=== PATIENT | female | born 1995 | race Caucasian/White ===

== ENCOUNTER 2021-11-18 07:00 | Inpatient (IN) | payer BC, SELFPAY ==
[2021-11-18] VITALS (76 sets, daily range): BP systolic 88–123; BP diastolic 46–73; PULSE 60–102; RESP 16; TEMP 36.2–37.2; O2SAT 86–100; BMI 34.0
[2021-11-18] MEDS: Lactated Ringers 1,000 ML 50 ML IV (07:45)
[2021-11-18 08:04] LABS: Absolute Lymphocyte Count 1.87 X10^3/uL (0.83-4.51); Absolute Neutrophil Count 6.1 X10^3/uL (2.0-7.7); Basophil# 0.02 X10^3/uL; Basophil% 0.2 % (0-1); Eosinophil# 0.19 X10^3/uL; Eosinophils% 2.1 % (0-5); Hemoglobin 10.8 g/dL (12.0-15.0); Lymphocyte # 1.87 X10^3/ul (0.83-4.51); Lymphocyte % 21.1 % (19-41); Mean Corp Hgb Conc 32.7 g/dL (32-36); Mean Corpuscular Hgb 28.2 pg (27.0-32.0); Mean Corpuscular Volume 86.2 fL (81-99); Mean Platelet Vol. 11.2 fl (6.2-12.0); Monocyte# 0.58 X10^3/uL; Monocyte% 6.6 % (0-10); NRBC Flagged by Analyzer 0 % (0-5); Neutrophil # 6.09 X10^3/uL (2.7-7.7); Neutrophil % 68.9 % (47-70); Platelet Count 173 K/mm3 (150-450); RBC Distribution Width CV 13.8 % (11.6-14.6); RBC Distribution Width SD 42.6 fl (35.1-43.9); Red Blood Count 3.83 M/mm3 (4.2-5.4); White Blood Count 8.9 K/mm3 (4.4-11.0)
[2021-11-18] MEDS: Oxytocin 30 units/NS 500 ml 30 UNITS/500 ML IV.SOLN IV (08:07)
--- NOTE | 2021-11-18 08:22 | PCM.HP.OB ---
HPI - General General Date of Admission: 11/18/21 Date of Service: 11/18/21 HPI Narrative REBEL DAWKINS, is a 26 F who presents at 40w1d for induction of labor for GDMA1 with good glycemic control. PFSH PFSH Home Medications Aspir-81 81 mg PO.IVFORM DAILY pre-e prevention 11/18/21 [History Last Taken Unknown] iron 325 mg PO.IVFORM DAILY anemia 11/18/21 [History Last Taken Unknown] [id number]-[id number]-Tm-FA 1 mg tablet 1 tab PO DAILY 11/18/21 [History Last Taken 11/15/21 22:00 1 tablet] Allergy/AdvReac Type Severity Reaction Status Date / Time cephalexin [From Keflex] Allergy Hives Verified 11/18/21 08:10 penicillin G Allergy Hives Verified 11/18/21 08:10 Social History Smoking Status: Former smoker History Elective abortions Hx Para 1 Spontaneous abortions Hx # Term Pregnancies Ectopic pregnancies Hx # Pregnancies Multiple births # of living children NST FHR Rate Baby A Baseline: 125 Variability:: Absent Accelerations:: 15 x 15 NST Reactive:: Yes FHR Category:: Category I Uterine Activity:: None ROS Constitutional Constitutional: Reports systems reviewed and no addt'l complaints, except as documented; Denies headache(s) Eyes Eyes: Denies acute decrease in peripheral vision, blurry vision or change in vision ENT HEENT: Reports systems reviewed and no addt'l complaints, except as documented Cardiovascular Cardiovascular: Denies chest pain or dizziness Respiratory/Chest Respiratory/Chest: Denies cough, dyspnea, dyspnea on exertion, shortness of breath at rest or shortness of breath with exertion Gastrointestinal Gastrointestinal: Denies abdominal pain, diarrhea, nausea or vomiting Genitourinary Genitourinary: Denies abdominal discomfort or movement Musculoskeletal Musculoskeletal: Denies limited range of motion Integumentary Integumentary: Reports systems reviewed and no addt'l complaints, except as documented Neurologic Neurologic: Reports systems reviewed and no addt'l complaints, except as documented Psychiatric Psychiatric: Reports systems reviewed and no addt'l complaints, except as documented Endocrine Endocrinology: Reports systems reviewed and no addt'l complaints, except as documented Hematologic/Lymphatic Hematologic/Lymphatic: Reports systems reviewed and no addt'l complaints, except as documented Allergic/Immunologic Allergic/Immunologic: Reports systems reviewed and no addt'l complaints, except as documented Vital Signs Vital Signs Vital Signs: 11/18/21 08:09 11/18/21 08:09 11/18/21 08:09 Temperature Pulse Rate 79 Blood Pressure 122/59 H BP Systolic 122 BP Diastolic 59 Pulse Ox 97 11/18/21 08:09 11/18/21 08:09 Temperature 97.7 F L Pulse Rate 78 Blood Pressure BP Systolic BP Diastolic Pulse Ox Weight Weight: 192 lb 0.362 oz Body Mass Index (BMI) 34.0 Physical Exam Const alert and oriented x3 General Appearance: cooperative Orientation / Consciousness: awake, oriented to person, oriented to place and oriented to time Exam Limitations: no limitations HEENT normocephalic Head and Scalp: normal to inspection, normocephalic and atraumatic Face and Sinus: normal facial exam Eyes General Eye: normal appearance of both eyes Neck full ROM Chest Chest: symmetrical chest wall rise Resp normal respiratory effort and normal air movement Auscultation: clear to auscultation bilaterally Cardio regular rate, regular rhythm, S1 normal heart sound, S2 normal heart sound, no murmurs, no rub, no gallops and no clicks GI normal to inspection, nondistended, normoactive bowel sounds and non-tender appearance of the vagina normal Bladder / Kidney Exam: no CVA tenderness Back/Spine normal ROM Extremity normal to inspection and full ROM Skin no rashes or lesions noted Neuro oriented x3, CN's II-XII intact bilaterally and moves all extremities Sensorium / Orientation: awake, alert and oriented to person Motor Exam: clonus absent Deep Tendon Reflexes: Rt Patellar (L4): 2+ and Lt Patellar (L4): 2+ Labs Labs Labs: Blood Type Pending Antibody Screen Pending Hct 33.0 % (37-47) L Hgb 10.8 g/dL (12.0-15.0) L Growth US at 36 weeks 83rd percentile GBS negative HIV negative RPR negative Rubella Immune HBsAG negative HepCnegative A positive Assessment & Plan (1) Encounter for induction of labor: (2) GDM, class A1: (3) Anemia affecting : (4) Obesity affecting : (5) History of depression: (6) Family history of Marfan syndrome: PLAN: Plan 1) Admit to labor and delivery 2) Routine labs 3) GBS negative 4) Aldrich with pitocin for induction of labor per policy 5) Desires PPTL, will complete during stay if unit accuity allows 6) Epidural for pain management 7) BS check upon admission and diabetic protocol 8) collaborative physician and notified of patient status
[2021-11-18] MEDS: 0.9% Normal Saline Single 100 ML IV.SOLN. INTRA-UTER (08:34)
[2021-11-18 08:40] LABS: Bedside Glucose 145 mg/dL (74-106)
[2021-11-18] MEDS: Mag Hydrox/Al Hydrox/Simeth 30 ML UDC PO ×3 (08:54→19:46)
[2021-11-18 09:41] LABS: Bedside Glucose 101 mg/dL (74-106)
[2021-11-18 10:56] LABS: Bedside Glucose 77 mg/dL (74-106)
--- NOTE | 2021-11-18 11:53 | PN.OBGYN_ITS ---
Subjective Subjective Resting in bed. Partner at bedside. Breathing through contractions. Objective Data Objective Data Vital Signs: Vital Signs Temp Pulse BP Pulse Ox 97.5 F L 64 106/55 L 98 11/18/21 11:11 11/18/21 11:44 11/18/21 11:11 11/18/21 11:44 Weight: 192 lb 0.362 oz Body Mass Index (BMI) 34.0 Intake & Output: Intake and Output for Last 24 Hours 11/16/21 11/17/21 11/18/21 23:59 23:59 23:59 Intake Total 912.43 / 912.43 Output Total 900 / 900 Balance 12.43 / 12.43 Lab / Micro Data Result Diagrams: 11/18/21 07:45 Labs: Laboratory Results - last 24 hr 11/18/21 07:45: WBC 8.9, RBC 3.83 L, Hgb 10.8 L, Hct 33.0 L, MCV 86.2, MCH 28.2, MCHC 32.7, RDW Std Deviation 42.6, RDW Coeff of Genie 13.8, Plt Count 173, MPV 1 1.2, Immature Gran % (Auto) 1.100 H, Neut % (Auto) 68.9, Lymph % (Auto) 21.1, [place] % (Auto) 6.6, Eos % (Auto) 2.1, Baso % (Auto) 0.2, Absolute Neuts (auto) 6.1, Absolute Lymphs (auto) 1.87, Nucleated RBC % 0 11/18/21 07:45: Blood Type A POSITIVE, Antibody Screen NEGATIVE 11/18/21 08:18: POC Glucose 145 H 11/18/21 09:19: POC Glucose 101 11/18/21 10:23: POC Glucose 77 Micro: Microbiology 11/18/21 07:45 Nasal Secretion SARS-CoV-2 Antigen (Rapid) - Final Physical Exam Narrative 5cm/70%/-1 AROM for clear fluid NST FHR Rate Baby A Baseline: 125 Variability:: Moderate Accelerations:: None Decelerations:: Prolonged FHR Category:: Category II Uterine Activity:: every 2-5 minutes. Assessment & Plan (1) Encounter for induction of labor: (2) GDM, class A1: (3) Anemia affecting : (4) Obesity affecting : PLAN: Plan 1) AROM for clear fluid 2) IUPC and FSE placed 3) Prolonged decel after rupture. Pitocin off and positional changes. Category 2 4) Pitocin off for 3 minutes then restart at 4mus 5) Epidural for pain management 6) notified of patient status
[2021-11-18] MEDS: LACTATED RINGERS 500 ML 999 ML IV (11:55)
[2021-11-18] MEDS: fentaNYL-bupivacaine (epidural) 100 ML BAG EPIDURAL ×2 (13:10→17:45)
[2021-11-18 14:40] LABS: Bedside Glucose 74 mg/dL (74-106)
[2021-11-18] MEDS: Lactated Ringers 1,000 ML 200 ML IV ×2 (15:12→19:46)
[2021-11-18 18:16] LABS: Bedside Glucose 63 mg/dL (74-106)
[2021-11-18 19:21] LABS: Bedside Glucose 74 mg/dL (74-106)
[2021-11-18 20:10] LABS: Bedside Glucose 75 mg/dL (74-106)
[2021-11-18] MEDS: Oxytocin 30 units/NS 500 ml 30 UNITS/500 ML IV.SOLN 334 UNITS IV (21:22)
[2021-11-18 21:26] LABS: Bedside Glucose 89 mg/dL (74-106)
--- NOTE | 2021-11-18 21:36 | EX.PCM.OBRPT ---
Assessment & Plan (1) GDM, class A1: (2) Vaginal delivery: (3) First degree perineal laceration: Maternal Data Information ARLEY Calculator Estimated Delivery Date Method Current WG Current Estimate 11/17/21 Manual 40w 1d Vaginal Delivery Maternal Presentation Maternal Presentation: Medically Indicated Induction Maternal Presentation: Induction of labor for GDMA1, obesity Type of Induction: Pitocin and Aldrich Bulb Operative Information Date of Procedure: 11/18/21 Pre-Operative Diagnosis: Induction of labor Post-Operative Diagnosis: with first degree perineal laceration Surgery / Procedure Performed: Spontaneous Vaginal Delivery Type of Anesthesia: Epidural Estimated Blood Loss: 600 ml Time of Delivery: 21:21 Findings Description of Procedure: Progressed to complete dilation. Good pushing efforts, epidural effective. of viable male infant over first degree perineal laceration. APGARS 8,9. Infant head delivered with body immediately forthcoming. Placed on maternal abdomen, strong cry. Mouth and nares suctioned for secretions. Pitocin started for active 3rd stage management. Clord clamped and cut by FOB after pulsations ceased. Placenta delivered with expression intact, 3 vessel cord via dimple. Perineum inspected and revealed first degree perineal laceration repaired under epidural analgesia with 3.0 vircyl rapide. well approximated and hemostasis achieved. EBL 600ml, fundus firm. Vaginal sweep completed, sponge and instrument count correct. Mother and baby stable, planning to breastfeed, family bonding well. notified of delivery. Presentation: GORDY Amniotic Membrane Rupture Type: Artificial Amniotic Fluid Description: Clear Placental Delivery Description: Expressed Placenta Disposition: [facility] Cord Vessel Description: 3 Vessels Cord Entanglement: None A Gender: Male (1 minute): 8 (5 minute): 9 Delayed Cord Clamping: Yes Post Vaginal Delivery Medications Given After Delivery: IV Pitocin Episiotomy Description: None Laceration: Perineal Extension/lac and 1st degree Complication Complications: None
[2021-11-18 22:35] LABS: Bedside Glucose 98 mg/dL (74-106)
[2021-11-19 00:04] VITALS: PULSE 89; O2SAT 99
[2021-11-19 04:11] VITALS: BP 108/56; PULSE 66; RESP 18; TEMP 36.7; O2SAT 97
[2021-11-19] MEDS: Ibuprofen 600 MG Tablet PO ×3 (04:21→18:00)
[2021-11-19 05:36] LABS: Hemoglobin 9.7 g/dL (12.0-15.0); Mean Corp Hgb Conc 32.3 g/dL (32-36); Mean Corpuscular Volume 86.5 fL (81-99); Mean Platelet Vol. 10.8 fl (6.2-12.0); Platelet Count 153 K/mm3 (150-450); RBC Distribution Width CV 13.6 % (11.6-14.6); Red Blood Count 3.47 M/mm3 (4.2-5.4); White Blood Count 12.3 K/mm3 (4.4-11.0)
[2021-11-19 06:25] LABS: Bedside Glucose 84 mg/dL (74-106)
[2021-11-19 07:33] VITALS: BP 109/48; PULSE 90; RESP 18; TEMP 36.1; O2SAT 97
--- NOTE | 2021-11-19 08:33 | NURSING ---
Pt sitting in reclined chair during shift assessment and fundal check. Fundal at 1 above U, midline, and firm. Noted that previous assessments were at U. Will recheck when pt is lying flat in bed. DAVIDA morales.
[2021-11-19] MEDS: Senna/Docusate Sodium 1 Tablet PO (10:28)
[2021-11-19] MEDS: Prenatal Vits Tablet 1 TABLET PO (10:28)
[2021-11-19] MEDS: Citalopram 10 MG Tablet PO (10:28)
[2021-11-19 12:12] VITALS: BP 115/43; PULSE 83; RESP 16; TEMP 36.6
--- NOTE | 2021-11-19 12:20 | PCM.PN.OB ---
Subjective Subjective Pain controlled Objective Data Objective Data Vital Signs: Vital Signs Temp Pulse Resp BP Pulse Ox O2 Del Method 97.8 F 83 16 115/43 L 97 Room Air 11/19/21 12:12 11/19/21 12:12 11/19/21 12:12 11/19/21 12:12 11/19/21 07:33 11/19/21 12:12 Oxygen Delivery Method Room Air Weight: 192 lb 0.362 oz Body Mass Index (BMI) 34.0 Intake & Output: Intake and Output for Last 24 Hours 11/17/21 11/18/21 11/19/21 23:59 23:59 23:59 Intake Total 3721.76 / 4221.76 1500 / 1500 Output Total 1999 / 1999 1750 / 1750 Balance 1721.76 / 2221.76 -250 / -250 Lab / Micro Data Result Diagrams: 11/19/21 05:30 Labs: Laboratory Results - last 24 hr 11/18/21 14:17: POC Glucose 74 11/18/21 17:55: POC Glucose 63 L 11/18/21 19:00: POC Glucose 74 11/18/21 19:52: POC Glucose 75 11/18/21 21:06: POC Glucose 89 11/18/21 22:16: POC Glucose 98 11/19/21 05:30: WBC 12.3 H, RBC 3.47 L, Hgb 9.7 L, Hct 30.0 L, MCV 86.5, MCH 28.0, MCHC 32.3, RDW Std Deviation 42.0, RDW Coeff of Genie 13.6, Plt Count 153, MPV 10.8 11/19/21 05:59: POC Glucose 84 Micro: Microbiology 11/18/21 07:45 Nasal Secretion SARS-CoV-2 Antigen (Rapid) - Final Physical Exam Const alert, oriented x3 and no apparent distress HEENT normocephalic GI soft to palpation, non-tender and non-distended GI Narrative: fundus firm, mid & below umbilicus Extremity normal to inspection and no calf tenderness Assessment & Plan (1) Vaginal delivery: COMMENT: PPD#1 PLAN: Possible d/c home tonight as requested by patient CBC reviewed (2) GDM, class A1: PLAN: FBS normal this am
--- NOTE | 2021-11-19 12:22 | DCINST_ITS ---
Discharge Instructions Diet Discharge Diet: No restrictions Activity Discharge Activity: May Shower May resume sexual activity in: 6 weeks Weight Bearing Status: Weight bearing as tolerated Dressing / Incision Call your doctor if you observe: Fever of 101 or Higher, Coldness, Increased Pain, Change in Color, Inability to urinate, Inability to have a bowel movement, Using more than 1 pad per hour, Shortness of breath, Dizziness, Fainting spells, Chest pain, Increased palpitations (irregular heartbeat), Calf discomfort and Uncontrolled pain Suture Line Care: Avoid Pulling/Pushing and Avoid Pinching/Bending Follow Up Care Please Follow Up With: Sunitha Atkins CNM When: Follow up in 2 and 6 weeks for visits. Test Results: Test results from this visit will be discussed in further detail at your follow- up appointment, if applicable. Discharge Plan Admission Admit Date/Time: 11/18/21 07:00 Primary Reason for Your Visit: Vaginal delivery Attending Provider: Sunitha Atkins Primary Care Provider: Care Physician,Afsaneh Primary Discharge Orders/Prescriptions Prescriptions: New acetaminophen 500 mg Tablet 1,000 mg PO Q6H PRN PRN (Reason: Pain 1-10 Or Fever) Qty: 0 0RF ibuprofen 600 mg Tablet 600 mg PO Q6H PRN PRN (Reason: Pain Score 1-3) Qty: 0 0RF Continued ttarenyd-rwe-Me-FA 1 mg Tablet 1 tab PO DAILY iron 325 mg PO.IVFORM DAILY Celexa 10 mg PO.IVFORM DAILY Discontinued Aspir-81 81 mg PO.IVFORM DAILY Referrals / Follow Up: Care Physician,No Primary [Primary Care Provider] - Disposition Disposition (needs filled in before D/C Order can be placed): Home, Self Care
[2021-11-19 16:00] VITALS: BP 136/64; PULSE 83; RESP 16; TEMP 36.3
[2021-11-19 19:57] VITALS: BP 112/51; PULSE 73; RESP 17; TEMP 36.3; O2SAT 97
== END 2021-11-19 22:40 | disposition home or self-care (01) | DRG 807 ==
PROVIDERS: Obstetrics & Gynecology; Admitting Provider Advanced Practice Midwife; Visit Provider Advanced Practice Midwife
DX: O76 Abnormality in fetal heart rate and rhythm complicating labor and delivery (principal); Z37.0 Single live birth; O24.420 Gestational diabetes mellitus in childbirth, diet controlled; O99.02 Anemia complicating childbirth; O99.214 Obesity complicating childbirth; O70.0 First degree perineal laceration during delivery; Z79.82 Long term (current) use of aspirin; Z3A.40 40 weeks gestation of pregnancy; Z86.59 Personal history of other mental and behavioral disorders; Z87.891 Personal history of nicotine dependence; Z82.79 Family history of other congenital malformations, deformations and chromosomal abnormalities
CPT/HCPCS: 59025; 59050; 82962; 85025; 85027; 86850; 86900; 86901; 87426; 99218; J7120; G0378

== ENCOUNTER 2021-11-22 01:00 | Emergency (ER) | payer BC, SELFPAY ==
[2021-11-22 01:01] VITALS: BP 144/82; PULSE 75; RESP 16; TEMP 35.9; O2SAT 97; BMI 32.2
[2021-11-22 01:23] LABS: Mucous, Urine 0 SEEN /hpf (<or=2+)
[2021-11-22 01:24] LABS: Color, Urine Yellow (Yellow); Glucose, Dipstick Normal (Normal); Ketone-Dipstick Negative (Negative); Leukocyte Esterase-Dipstick 100 /ul (Negative); Nitrite-Dipstick Negative (Negative); Occult Blood-Urine 250 /ul (Negative); Protein-Dipstick Negative (Negative); Urine Bilirubin Dipstick Negative (Negative); Urine Clarity Clear (Clear); Urine Urobilinogen Normal (Normal)
[2021-11-22 01:25] LABS: Absolute Lymphocyte Count 2.32 X10^3/uL (0.83-4.51); Absolute Neutrophil Count 4.7 X10^3/uL (2.0-7.7); Basophil# 0.02 X10^3/uL; Basophil% 0.2 % (0-1); Hematocrit 31.8 % (37-47); Hemoglobin 10.4 g/dL (12.0-15.0); Lymphocyte # 2.32 X10^3/ul (0.83-4.51); Lymphocyte % 28.7 % (19-41); Mean Corp Hgb Conc 32.7 g/dL (32-36); Mean Corpuscular Volume 85.5 fL (81-99); Mean Platelet Vol. 10.6 fl (6.2-12.0); Monocyte# 0.61 X10^3/uL; Monocyte% 7.6 % (0-10); NRBC Flagged by Analyzer 0 % (0-5); Neutrophil # 4.66 X10^3/uL (2.7-7.7); Neutrophil % 57.8 % (47-70); POSITIVE MORPHOLOGY YES; Platelet Count 207 K/mm3 (150-450); RBC Distribution Width CV 13.6 % (11.6-14.6); RBC Distribution Width SD 42.5 fl (35.1-43.9); Red Blood Count 3.72 M/mm3 (4.2-5.4); White Blood Count 8.1 K/mm3 (4.4-11.0)
[2021-11-22 01:32] LABS: Bacteria RARE /hpf (None Seen); Red Blood Cells-Urine 5-10 SEEN /hpf (0-5); Squamous Epithelial Cells - UA 0-5 SEEN /hpf (5-10); White Blood Cells 0-5 SEEN /hpf (0-5)
[2021-11-22 01:33] LABS: Differential Indicated SCAN CRITERIA MET
[2021-11-22 01:38] LABS: Anion Gap 7 (5-15); BUN 8 mg/dL (7-18); BUN/Creat Ratio 11.6 RATIO (10-20); Calcium,Total 8.8 mg/dL (8.5-10.1); Chloride 109 mmol/L (98-107); Creatinine, Serum 0.69 mg/dL (0.55-1.02); EST Glomerular Filtration Rate 109 mL/min (>60); Est Glom Filt Rate - Afr Amer 132 mL/min (>60); Estimated Creatinine Clearance 102.21 ml/min; Glucose 109 mg/dL (74-106); Lipase 103 U/L (73-393); Potassium 3.7 mmol/L (3.5-5.1); Sodium Level 140 mmol/L (136-145)
--- NOTE | 2021-11-22 01:41 | CT_ITS ---
STUDY: CT ABDOMEN AND PELVIS WITHOUT CONTRAST REASON FOR EXAM: Female, 26 years old. Flank pain RADIATION DOSAGE (If Supplied By Facility): CTDIvol = ( 9.09 ) mGy, DLP = ( 458.78 ) mGycm TECHNIQUE: Transaxial images were obtained from the dome of the diaphragm to the symphysis pubis without oral contrast, and without intravenous contrast. Sagittal and coronal images were reconstructed. Individualized dose optimization techniques were used for this CT. COMPARISON: None. FINDINGS: The visualized lung bases are unremarkable. The visualized portions of the heart are within normal limits. Normal liver. Normal gallbladder and extrahepatic biliary system. Normal spleen. Normal pancreas. Normal bilateral adrenal glands. Normal right kidney. Normal left kidney. Normal visualized stomach. Normal small intestine. Normal colon. The appendix is visualized and appears normal. Normal abdominal aorta. Normal inferior vena cava. Normal retroperitoneum. Normal urinary bladder. Normal reproductive structures. Normal abdominal wall. Normal osseous structures. CT/Abdomen/Pelvis without Cont IMPRESSION: No acute intra-abdominal abnormality. Electronically Signed: Vikash Montano MD at 2:23 EDT ,
[2021-11-22 01:43] LABS: Atypical Lymphocyte RARE %; Differential Comment SCANNED
[2021-11-22] MEDS: 0.9% Normal Saline 1,000 ML 999 ML IV (01:48)
[2021-11-22 02:05] LABS: AST(SGOT) 14 U/L (15-37); Alanine Aminotransfer ALT/SGPT 17 U/L (13-56); Albumin, Serum 2.3 g/dL (3.2-5.0); Alkaline Phosphatase 108 U/L (45-117); Bilirubin, Direct < 0.05 mg/dL (0.00-0.30); Protein, Total 6.3 g/dL (6.4-8.2)
--- NOTE | 2021-11-22 02:37 | EDS_ITS ---
HPI History of Present Illness Chief Complaint: Abd Pain Narrative Narrative: Patient is a 26-year-old female with past medical history of depression. She is a G2, P2 who gave by vaginal delivery 4 days ago. Patient states that the was relatively uneventful and she had a grade 1 tear that did not require sutures. She states she stayed in the hospital overnight until Thursday and went home. She states she has been doing well but this evening around midnight developed left-sided abdominal pain. She states there is been no trauma associated with the pain. She denies any fevers or chills. She denies any nausea vomiting diarrhea or dysuria. She states she is having some vaginal bleeding and discharge but this is common at this point after her . She states that the pain waxes and wanes but as it had a sudden onset she was concerned and therefore comes in for evaluation. PFSH PFS Medical History (Updated 11/22/21 @ 02:[address] Kit Coles, DO) Anemia Anxiety Depression Gestational diabetes depression Home Medications Celexa 10 mg PO.IVFORM DAILY depression/anxiety 11/18/21 [History Last Taken Unknown] ecrlfpqg-[id number]-Mw-FA 1 mg tablet 1 tab PO DAILY 11/18/21 [History Last Taken 11/15/21 22:00 1 tablet] acetaminophen 500 mg tablet 1,000 mg PO Q6H PRN PRN Pain 1-10 Or Fever #0 tabs 11/19/21 [Rx Last Taken Unknown] Allergy/AdvReac Type Severity Reaction Status Date / Time cephalexin [From Keflex] Allergy Hives Verified 11/22/21 01:04 penicillin G Allergy Hives Verified 11/22/21 01:04 Family History (Updated 11/18/21 @ 09:31 by Aniya Valero) Mother Hypertension Father Hypertension Son Marfan syndrome Surgical History [place] teeth extracted Social History Smoking Status: Former smoker ROS ROS ED Constitutional Constitutional ED: Denies chills or fever(s) ENT ENT ED: Denies sore throat Cardiovascular Cardiovascular: Denies chest pain Respiratory/Chest Respiratory/Chest: Denies cough or dyspnea Gastrointestinal Gastrointestinal: Reports abdominal pain; Denies diarrhea, nausea or vomiting Genitourinary Genitourinary ED: Denies dysuria Musculoskeletal Musculoskeletal: Denies myalgias Integumentary Denies rash Neurologic Neurologic: Denies headache(s) Hematologic/Lymphatic Hematologic/Lymphatic: Denies easy bleeding or easy bruising EXAM Physical Exam Const Vital Signs: 11/22/21 01:01 11/22/21 02:46 Temperature 96.6 F L Temperature Source Temporal Pulse Rate 75 76 Respiratory Rate 16 16 Blood Pressure 144/82 H Blood Pressure Mean 102 Pulse Ox 97 98 Oxygen Delivery Method Room Air Positive well nourished and well developed General Appearance ED: well developed Eyes PERRL and EOMs intact bilaterally Neck supple Resp normal respiratory effort and clear to auscultation bilaterally Cardio regular rate and regular rhythm Rate: other Other Details: Radial pulses are plus 2 out of 4 bilaterally are equal and symmetric GI non-distended GI Narrative: Abdomen is soft and nondistended with normoactive bowel sounds. There is pain with palpation in the left lower quadrant without voluntary guarding or rigidity. The patient's uterus is still distended consistent with her post state. Auscultation: normoactive bowel sounds Palpation: soft Back/Spine Back/Spine Narrative: Mild left CVA pain noted Extremity normal to inspection Extremity Narrative: No asymmetric edema no pitting edema negative Homans' sign bilaterally Neuro oriented x3 and CN's II-XII intact bilaterally Sensorium / Orientation: alert Psych mental status grossly normal Skin no rashes or lesions noted Skin Narrative: No overlying soft tissue skin changes to suggest trauma or infection MDM MDM MDM Narrative Medical decision making narrative: Patient presented to the ER afebrile. She had pain in the left lower quadrant as well as left flank that she states was waxing and waning and came on suddenly. Based on this history I had concern for possible kidney stone so basic labs and a CT scan were ordered. Labs showed no clinically significant findings and CT scan revealed no obvious cause of the patient's pain. The patient had a vaginal delivery and reportedly the placenta was without difficulty. This fits the fact that she is afebrile with no leukocytosis and the pain is been intermittent as well as the fact the CT scan shows no retained products of conception. The urine does show leukocyte esterase but there are no white blood cells and only rare bacteria and the patient does not have urinary symptoms so I do not feel this is the cause of her pain. On reevaluation she is resting comfortably and her vitals remained stable. At this time with a negative work-up I do not feel there is need for admission or emergent transfer. Patient can follow-up with her [facility] on outpatient basis to discuss need for ultrasound if her pain persist but at this time with negative blood work and stable vitals as well as a normal CT scan I feel she is safe for discharge and outpatient follow-up Lab Data Attestation: I reviewed the patient's lab results. Labs: Laboratory Results - last 24 hr 11/22/21 11/22/21 11/22/21 01:10 01:20 01:20 WBC 8.1 RBC 3.72 L Hgb 10.4 L Hct 31.8 L MCV 85.5 MCH 28.0 MCHC 32.7 RDW Std Deviation 42.5 RDW Coeff of Genie 13.6 Plt Count 207 MPV 10.6 Immature Gran % (Auto) 0.700 Neut % (Auto) 57.8 Lymph % (Auto) 28.7 [place] % (Auto) 7.6 Eos % (Auto) 5.0 Baso % (Auto) 0.2 Absolute Neuts (auto) 4.7 Absolute Lymphs (auto) 2.32 Nucleated RBC % 0 Differential Comment SCANNED Atypical Lymphocytes RARE Sodium 140 Potassium 3.7 Chloride 109 H Carbon Dioxide 24.0 Anion Gap 7 BUN 8 Creatinine 0.69 Estim Creat Clear Calc 102.21 Est GFR (MDRD) Af Amer 132 Est GFR (MDRD) Non-Af 109 BUN/Creatinine Ratio 11.6 Glucose 109 H Calcium 8.8 Total Bilirubin Direct Bilirubin AST ALT Alkaline Phosphatase Total Protein Albumin Globulin Lipase 103 Urine Color Yellow Urine Clarity Clear Urine pH 7.0 Ur Specific [place] 1.010 Urine Protein Negative Urine Glucose (UA) Normal Urine Ketones Negative Urine Occult Blood 250 H Urine Nitrite Negative Urine Bilirubin Negative Urine Urobilinogen Normal Ur Leukocyte Esterase 100 H Urine RBC 5-10 SEEN Urine WBC 0-5 SEEN Ur Squamous Epith Cells 0-5 SEEN Urine Bacteria RARE Urine Mucus 0 SEEN 11/22/21 01:20 WBC RBC Hgb Hct MCV MCH MCHC RDW Std Deviation RDW Coeff of Genie Plt Count MPV Immature Gran % (Auto) Neut % (Auto) Lymph % (Auto) [place] % (Auto) Eos % (Auto) Baso % (Auto) Absolute Neuts (auto) Absolute Lymphs (auto) Nucleated RBC % Differential Comment Atypical Lymphocytes Sodium Potassium Chloride Carbon Dioxide Anion Gap BUN Creatinine Estim Creat Clear Calc Est GFR (MDRD) Af Amer Est GFR (MDRD) Non-Af BUN/Creatinine Ratio Glucose Calcium Total Bilirubin 0.20 Direct Bilirubin < 0.05 AST 14 L ALT 17 Alkaline Phosphatase 108 Total Protein 6.3 L Albumin 2.3 L Globulin 4.0 Lipase Urine Color Urine Clarity Urine pH Ur Specific [place] Urine Protein Urine Glucose (UA) Urine Ketones Urine Occult Blood Urine Nitrite Urine Bilirubin Urine Urobilinogen Ur Leukocyte Esterase Urine RBC Urine WBC Ur Squamous Epith Cells Urine Bacteria Urine Mucus Radiography Diagnostic Testing: Clinical Impression(s) from Imaging Studies Abdomen/Pelvis CT 11/22/21 01:41 IMPRESSION: No acute intra-abdominal abnormality. Electronically Signed: Vikash Montano MD at 2:23 EDT , Discharge Plan Triage Chief Complaint: Abd Pain ED Provider: Kit Coles Dx/Rx/DC Orders Clinical Impression: Nonspecific abdominal pain Instructions: Abdominal Pain, Pain After Childbirth Prescriptions: No Action [id number]-tyf-Cm-FA 1 mg Tablet 1 tab PO DAILY Celexa 10 mg PO.IVFORM DAILY acetaminophen 500 mg Tablet 1,000 mg PO Q6H PRN PRN (Reason: Pain 1-10 Or Fever) Qty: 0 0RF Primary Care Provider: Care Physician,No Primary Referrals: Care Physician,No Primary [Primary Care Provider] - Activity Restrictions/Additional Instructions: Please follow up with your [facility] for repeat evaluation and to discuss possible ultrasound if pain persists. If pain becomes unbearable or you develop a fever over 100.4 please return to the ER for repeat evaluation Disposition Disposition: Home, Self Care Discharge Date/Time: 11/22/21 02:47
[2021-11-22 02:46] VITALS: PULSE 76; RESP 16; O2SAT 98
== END 2021-11-22 02:47 | disposition home or self-care (01) ==
PROVIDERS: Emergency Provider Emergency Medicine; Visit Provider Emergency Medicine
DX: R10.9 Unspecified abdominal pain (principal); Z87.891 Personal history of nicotine dependence
CPT/HCPCS: 74176; 80048; 80076; 81001; 83690; 85025; 99282; J7030

== ENCOUNTER 2024-01-09 12:20 | Observation (INO) | payer OTHER, SELFPAY ==
[2024-01-09] VITALS (12 sets, daily range): BP systolic 102–134; BP diastolic 61–92; PULSE 40–82; RESP 16–40; TEMP 36.2–36.6; O2SAT 97–100; BMI 26.6
--- NOTE | 2024-01-09 12:41 | CT_ITS ---
We are attempting to reach an attending provider to discuss findings. An addendum with communication details will be sent when the communication is complete. EXAM: CT ABDOMEN AND PELVIS WITH INTRAVENOUS CONTRAST CLINICAL INDICATION: RLQ abd pain TECHNIQUE: Helically acquired images were obtained of the abdomen and pelvis with intravenous contrast. This CT exam was performed using one or more of the following dose reduction techniques: automated exposure control, adjustment of the mA and/or kV according to patient size, and/or use of iterative reconstruction technique. CONTRAST: IV 100mL Isovue-300 RADIATION DOSE: CTDIvol = 12.13 mGy, DLP = 693.76 mGy-cm COMPARISON: CT abdomen and pelvis without contrast 11/22/2021. FINDINGS: LOWER THORAX: Unremarkable. Lung bases are clear. No cardiomegaly. No significant pericardial effusion. ABDOMEN: LIVER: Unremarkable. Homogeneous. No focal mass. GALLBLADDER AND BILE DUCTS: Unremarkable. No calcified gallstones. No gallbladder distention or wall edema. No intra- or extrahepatic biliary ductal dilation. PANCREAS: Unremarkable. No focal cystic or solid mass. SPLEEN: Unremarkable. Normal size without focal cystic or solid mass. ADRENALS: Unremarkable. No nodules. KIDNEYS AND URETERS: Unremarkable. Normal renal size and position. No hydronephrosis. STOMACH AND BOWEL: Mild intramural edema of the gastric antral wall. No stomach or bowel distention. No focal inflammatory change. PELVIS: APPENDIX: Mild intramural edema of the appendix worrisome for early acute appendicitis. No edema of the fat around the appendix. BLADDER: Unremarkable. REPRODUCTIVE: Unremarkable as visualized. No mass. ABDOMEN and PELVIS: INTRAPERITONEAL SPACE: Unremarkable. No ascites or other fluid collection. No free air. BONES/JOINTS: Unremarkable. No suspicious lytic or blastic abnormality. SOFT TISSUES: Unremarkable. No discrete abdominal or pelvic wall hernia. VASCULATURE: Unremarkable. Abdominal aorta is non-dilated. LYMPH NODES: Unremarkable. No enlarged lymph nodes. CT/Abdomen/Pelvis W IV Cont ONLY IMPRESSION: 1. Mild intramural edema of the appendix worrisome for early acute appendicitis. Advise clinical correlation. This is a new finding when compared to 11/22/2021. 2. Mild intramural edema of the gastric antral wall. EGD will help clarify if clinically warranted. 3. No other additional findings or changes. Electronically Signed: Pato Helm MD at 13:24 EDT ,
--- NOTE | 2024-01-09 12:43 | ED.VIS.GI ---
HPI HPI - GI History of Present Illness Chief Complaint: Abd Pain Detail of Chief Complaint: Right lower quadrant abdominal pain. Informant: patient and spouse/S.O. Abdominal Pain/Flank Pain Onset: Hours Context: Gradual Onset Timing: Continuous Quality: Cramping Location: RLQ Current Severity: Moderate Maximum Severity: Moderate Worsened by: Nothing Relieved by: Nothing Nausea/Vomiting/Emesis GI Symptom: Positive for Nausea; Negative for Vomiting Onset: Today Severity: Mild Diarrhea/Melena/Hematochezia GI Symptom: Positive for Diarrhea Onset: Today Stool Quality: Positive for Loose Severity: Mild Associated Symptoms Associated Symptoms: Negative for Dysuria, Frequency, Hematuria or Urgency Narrative Narrative: 28-year-old female denies any prior abdominal surgeries. Has a history of anemia and anxiety. States about 2 hours ago developed right lower quadrant abdominal pain with associated nausea and some loose stools. No fever. No vomiting. No dysuria. No hematuria. No prior abdominal surgeries. No trauma. Prior similar symptoms: No Recent Illness/Hospitalization: No PFSH PFSH Medical History Anemia Anxiety Depression depression Gestational diabetes Family history of Marfan syndrome History of depression Home Medications ?Medication ?Instructions ?Recorded ?Last Taken ?Type Celexa 10 mg PO.IVFORM DAILY 11/18/21 Unknown History depression/anxiety pizfsull-oit-Up-FA 1 mg 1 tab PO DAILY 11/18/21 11/15/21 22:00 History tablet 1 tablet acetaminophen 500 mg tablet 1,000 mg (2 x 500 mg) PO Q6H PRN 11/19/21 Unknown Rx PRN Pain 1-10 Or Fever #0 tabs Allergy/AdvReac Type Severity Reaction Status Date / Time cephalexin (From Keflex) Allergy Hives Verified 01/09/24 12:22 penicillin G Allergy Hives Verified 01/09/24 12:22 Family History Mother Hypertension Father Hypertension Son Marfan syndrome Surgical History [place] teeth extracted Social History Smoking Status: Former smoker ROS ROS ED ROS Narrative Nausea. Diarrhea. Abdominal pain. Constitutional Constitutional ED: Denies chills or fever(s) ENT ENT ED: Denies ear pain Cardiovascular Cardiovascular: Denies chest pain Respiratory/Chest Respiratory/Chest: Denies cough or dyspnea Gastrointestinal Gastrointestinal: Reports abdominal pain, diarrhea and nausea; Denies constipation, melena or vomiting Genitourinary Genitourinary ED: Reports LMP (females 10-50) Details: Comment: (Last menstrual period was about a week ago.); Denies dysuria or hematuria Musculoskeletal Musculoskeletal: Denies back pain or myalgias Integumentary Denies abscess or Abrasions Neurologic Neurologic: Denies headache(s) or paresthesias Psychiatric Psychiatric: Denies anxiety Endocrine Endocrinology: Denies polydipsia Hematologic/Lymphatic Hematologic/Lymphatic: Denies easy bleeding, easy bruising or lymphadenopathy Allergic/Immunologic Allergic/Immunologic ED: Denies mouth swelling, tongue swelling or urticaria EXAM Physical Exam Narrative Exam Narrative: 28-year-old female no acute distress vital signs stable afebrile. H EENT exam unremarkable. Neck nontender. Lungs clear. Heart regular rhythm rate about 80 no murmur. Chest wall ribs nontender. Abdomen soft, nondistended. Normal bowel sounds no peritoneal signs. Mild tenderness right lower quadrant. No hernia or mass. Right upper quadrant left side abdomen nontender. No distention. No signs of trauma. Back nontender. Moving all 4 extremities. No edema. Awake and alert. No focal motor deficits. Significant other at bedside. Const Vital Signs: 01/09/24 12:21 Temperature 97.2 F L Temperature Source Temporal Pulse Rate 82 Respiratory Rate 19 H Blood Pressure 134/92 H Blood Pressure Mean 106 Pulse Ox 97 Oxygen Delivery Method Room Air Positive well nourished and well developed; Negative for obese, cachectic, contractures or unkempt General Appearance ED: well developed and NAD; Negative for unkempt, cachectic, contractures or pallor Nutritional Appearance: Negative for cachectic or obese HEENT Reports moist mucous membranes normocephalic and atraumatic Eyes PERRL and EOMs intact bilaterally General Eye ED: Negative for pale conjunctiva or scleral icterus Neck no lymphadenopathy, supple and no JVD General: Negative for tenderness Carotids: Negative for other Lymph Lymphatic: Negative for other Resp normal respiratory effort Effort and Inspection: Negative for respiratory distress Auscultation: Negative for rales, rhonchi or wheezes Cardio regular rate, regular rhythm, S1 normal heart sound, S2 normal heart sound and no murmurs Rate: Negative for bradycardia or tachycardic Rhythm: Negative for abnormal rhythm GI non-tender, non-distended and no masses Inspection: Negative for abdominal distention Auscultation: normoactive bowel sounds Palpation: soft; Negative for tender, guarding or rebound tenderness present Back/Spine no CVA tenderness General Back: Negative for CVA tenderness Cervical Spine: Negative for cervical spine tenderness Thoracic Spine / Upper Back: Negative for thoracic spinal tenderness Lumbar Spine / Lower Back: Negative for lumbar spinal tenderness Coccyx: Negative for other Extremity full ROM General Extremety ED: Negative for edema or tenderness General Extremity: Negative for edema Neuro CN's II-XII intact bilaterally and moves all extremities Sensorium / Orientation: alert, oriented to person, oriented to place and oriented to time; Negative for orientation impaired, confused, lethargic or stuporous Motor Exam: strength 5/5 throughout; Negative for general weakness or strength abnormal Psych mental status grossly normal and thought process normal Appearance: Negative for unkempt Attitude: No agitated Mood & Affect: Negative for depressed, anxious or tearful Skin no wounds General Skin Exam: Negative for jaundice or pallor Lesions: no lesions Rashes: no rashes Trauma: Negative for abrasion or other Nails: Negative for discolored MDM MDM MDM Narrative Medical decision making narrative: 20-year-old female right lower quadrant abdominal pain. Differential would include appendicitis versus mesenteric adenitis versus ovarian cyst versus UTI versus kidney stone versus other. We discussed intravenous morphine and Zofran for pain. CAT scan labs are pending. Repeat exam at 1:27 PM patient's pain is improved with the IV morphine. She still is tender in the right lower quadrant. She and I discussed her test results and the CAT scan reading. I have general surgeon Dr. Simeon logan. Had I spoke. Patient has penicillin allergy. She will be started on IV Cipro. He is currently getting ready to start a case in the OR. And will see the patient down there. History & Record Review Discussion w/independent historian: Patient Additional record(s) reviewed:: Prior inpatient record, Prior outpatient record, Prior ED visit and Prior labs Lab Data Attestation: I reviewed the patient's lab results. Lab results narrative: CBC showed a white count of 14.7. H&H 12.9 and 37.8. Platelets 262. Electrolytes show potassium 3.3. Gap 7. Liver enzymes unremarkable. Lipase 31. Serum test negative. Labs: Laboratory Results - last 24 hr 01/09/24 12:05 WBC 14.7 H RBC 4.35 Hgb 12.9 Hct 37.8 MCV 86.9 MCH 29.7 MCHC 34.1 RDW Std Deviation 39.0 RDW Coeff of Genie 12.2 Plt Count 262 MPV 10.1 Immature Gran % (Auto) 0.500 Neut % (Auto) 84.5 H Lymph % (Auto) 9.9 L [place] % (Auto) 4.2 Eos % (Auto) 0.6 Baso % (Auto) 0.3 Absolute Neuts (auto) 12.4 H Absolute Lymphs (auto) 1.46 Nucleated RBC % 0 Sodium 138 Potassium 3.3 L Chloride 107 Carbon Dioxide 24.0 Anion Gap 7 BUN 10 Creatinine 0.85 Estim Creat Clear Calc 91.44 Est GFR (MDRD) Af Amer 102 Est GFR (MDRD) Non-Af 84 BUN/Creatinine Ratio 11.8 Glucose 97 Calcium 9.2 Total Bilirubin 0.50 AST 12 L ALT 14 Alkaline Phosphatase 47 Total Protein 7.2 Albumin 3.6 Globulin 3.6 Albumin/Globulin Ratio 1.0 Lipase 31 Serum , Qual NEGATIVE Radiography Diagnostic Testing: Clinical Impression(s) from Imaging Studies Abdomen/Pelvis CT 01/09/24 12:41 IMPRESSION: 1. Mild intramural edema of the appendix worrisome for early acute appendicitis. Advise clinical correlation. This is a new finding when compared to 11/22/2021. 2. Mild intramural edema of the gastric antral wall. EGD will help clarify if clinically warranted. 3. No other additional findings or changes. Electronically Signed: Pato Helm MD at 13:24 EDT , Discharge Plan Triage Chief Complaint: Abd Pain ED Provider: Jamarcus Locke Dx/Rx/DC Orders Clinical Impression: Abdominal pain, Acute appendicitis, Leukocytosis Prescriptions: No Action nxfagvww-oka-[id number]-FA 1 mg Tablet 1 tab PO DAILY Celexa 10 mg PO.IVFORM DAILY acetaminophen 500 mg Tablet 1,000 mg PO Q6H PRN PRN (Reason: Pain 1-10 Or Fever) Qty: 0 0RF Primary Care Provider: Care Physician,No Primary Referrals: Care Physician,No Primary [Primary Care Provider] - Print Language: Martiniquais
[2024-01-09] MEDS: morphine 8 MG/ML Syringe IV (12:53)
[2024-01-09] MEDS: Ondansetron 4 MG/2 ML Vial IV (12:53)
[2024-01-09 13:07] LABS: Absolute Lymphocyte Count 1.46 X10^3/uL (0.83-4.51); Absolute Neutrophil Count 12.4 X10^3/uL (2.0-7.7); Basophil# 0.05 X10^3/uL; Basophil% 0.3 % (0-1); Eosinophil# 0.09 X10^3/uL; Eosinophils% 0.6 % (0-5); Hematocrit 37.8 % (37-47); Hemoglobin 12.9 g/dL (12.0-15.0); Lymphocyte # 1.46 X10^3/ul (0.83-4.51); Lymphocyte % 9.9 % (19-41); Mean Corp Hgb Conc 34.1 g/dL (32-36); Mean Corpuscular Hgb 29.7 pg (27.0-32.0); Mean Corpuscular Volume 86.9 fL (81-99); Mean Platelet Vol. 10.1 fl (6.2-12.0); Monocyte# 0.62 X10^3/uL; Monocyte% 4.2 % (0-10); NRBC Flagged by Analyzer 0 % (0-5); Neutrophil # 12.41 X10^3/uL (2.7-7.7); Neutrophil % 84.5 % (47-70); Platelet Count 262 K/mm3 (150-450); RBC Distribution Width CV 12.2 % (11.6-14.6); Red Blood Count 4.35 M/mm3 (4.2-5.4); White Blood Count 14.7 K/mm3 (4.4-11.0)
[2024-01-09 13:11] LABS: Internal QC Validated? YES +Cl - CLEAR BKGD; Pregnancy, Serum, hCG Quali. NEGATIVE Negative
[2024-01-09 13:17] LABS: AST(SGOT) 12 U/L (15-37); Alanine Aminotransfer ALT/SGPT 14 U/L (13-56); Albumin, Serum 3.6 g/dL (3.2-5.0); Alkaline Phosphatase 47 U/L (45-117); Anion Gap 7 (5-15); BUN 10 mg/dL (7-18); BUN/Creat Ratio 11.8 RATIO (10-20); Calcium,Total 9.2 mg/dL (8.5-10.1); Chloride 107 mmol/L (98-107); Creatinine, Serum 0.85 mg/dL (0.55-1.02); EST Glomerular Filtration Rate 84 mL/min (>60); Est Glom Filt Rate - Afr Amer 102 mL/min (>60); Estimated Creatinine Clearance 91.44 ml/min; Globulin 3.6 g/dL (2.2-4.2); Glucose 97 mg/dL (74-106); Lipase 31 U/L (13-75); Potassium 3.3 mmol/L (3.5-5.1); Protein, Total 7.2 g/dL (6.4-8.2); Sodium Level 138 mmol/L (136-145)
[2024-01-09 13:41] LABS: Mucous, Urine 0 SEEN /hpf (<or=2+); Red Blood Cells-Urine 0 SEEN /hpf (0-5)
[2024-01-09] MEDS: Ciprofloxacin 400 MG/200 ML BAG 200 MG IV (13:47)
[2024-01-09 13:56] LABS: Color, Urine Yellow (Yellow); Glucose, Dipstick Normal (Normal); Ketone-Dipstick 5 mg/dl (Negative); Leukocyte Esterase-Dipstick Negative /ul (Negative); Nitrite-Dipstick Negative (Negative); Occult Blood-Urine Negative /ul (Negative); Protein-Dipstick 15 mg/dl (Negative); Urine Bilirubin Dipstick Negative (Negative); Urine Clarity Clear (Clear); Urine Urobilinogen Normal (Normal); Urine pH 6.5 (5.0 - 8.0)
[2024-01-09 14:04] LABS: Bacteria 2+ /hpf (None Seen); Squamous Epithelial Cells - UA 0-5 SEEN /hpf (5-10); White Blood Cells 0-5 SEEN /hpf (0-5)
--- NOTE | 2024-01-09 14:35 | PCM.HP.STD ---
HPI - General HPI Narrative REBEL DAWKINS, is a 28 F who presents with right lower quadrant pain. The patient says the pain started about 4 5 hours ago. She says that she does have nausea but no vomiting. She feels cold but no fever. [facility] Medical History Anemia Anxiety Depression depression Gestational diabetes Family history of Marfan syndrome History of depression Home Medications ?Medication ?Instructions ?Recorded ?Last Taken ?Type Celexa 10 mg PO.IVFORM DAILY 11/18/21 Unknown History depression/anxiety vshqoobv-ffn-Oj-FA 1 mg 1 tab PO DAILY 11/18/21 11/15/21 22:00 History tablet 1 tablet acetaminophen 500 mg tablet 1,000 mg (2 x 500 mg) PO Q6H PRN 11/19/21 Unknown Rx PRN Pain 1-10 Or Fever #0 tabs Allergy/AdvReac Type Severity Reaction Status Date / Time cephalexin (From Keflex) Allergy Hives Verified 01/09/24 12:22 penicillin G Allergy Hives Verified 01/09/24 12:22 Family History Mother Hypertension Father Hypertension Son Marfan syndrome Surgical History [place] teeth extracted Social History Smoking Status: Former smoker Vital Signs Vital Signs Vital Signs: 01/09/24 12:21 Temperature 97.2 F L Temperature Source Temporal Pulse Rate 82 Respiratory Rate 19 H Blood Pressure 134/92 H Blood Pressure Mean 106 Pulse Ox 97 Oxygen Delivery Method Room Air Weight Weight: 150 lb 11.2 oz Body Mass Index (BMI) 26.6 Physical Exam Const oriented x3 and no apparent distress Resp normal respiratory effort GI soft to palpation Palpation: tender RLQ Results Lab / Micro Data 01/09/24 12:05 01/09/24 12:05 Labs: Laboratory Results - last 24 hr 01/09/24 12:05: WBC 14.7 H, RBC 4.35, Hgb 12.9, Hct 37.8, MCV 86.9, MCH 29.7, MCHC 34.1, RDW Std Deviation 39.0, RDW Coeff of Genie 12.2, Plt Count 262, MPV 10.1, Immature Gran % (Auto) 0.500, Neut % (Auto) 84.5 H, Lymph % (Auto) 9.9 L, [place] % (Auto) 4.2, Eos % (Auto) 0.6, Baso % (Auto) 0.3, Absolute Neuts (auto) 12.4 H, Absolute Lymphs (auto) 1.46, Nucleated RBC % 0, Sodium 138, Potassium 3.3 L, Chloride 107, Carbon Dioxide 24.0, Anion Gap 7, BUN 10, Creatinine 0.85, Estim Creat Clear Calc 91.44, Est GFR (MDRD) Af Amer 102, Est GFR (MDRD) Non-Af 84, BUN/Creatinine Ratio 11.8, Glucose 97, Calcium 9.2, Total Bilirubin 0.50, AST 12 L, ALT 14, Alkaline Phosphatase 47, Total Protein 7.2, Albumin 3.6, Globulin 3.6, Albumin/Globulin Ratio 1.0, Lipase 31, Serum , Qual NEGATIVE 01/09/24 13:30: Urine Color Yellow, Urine Clarity Clear, Urine pH 6.5, Ur Specific [place] 1.010, Urine Protein 15 H, Urine Glucose (UA) Normal, Urine Ketones 5 H, Urine Occult Blood Negative, Urine Nitrite Negative, Urine Bilirubin Negative, Urine Urobilinogen Normal, Ur Leukocyte Esterase Negative, Urine RBC 0 SEEN, Urine WBC 0-5 SEEN, Ur Squamous Epith Cells 0-5 SEEN, Urine Bacteria 2+, Urine Mucus 0 SEEN Imaging Radiology Impression Abdomen/Pelvis CT 01/09/24 12:41 IMPRESSION: 1. Mild intramural edema of the appendix worrisome for early acute appendicitis. Advise clinical correlation. This is a new finding when compared to 11/22/2021. 2. Mild intramural edema of the gastric antral wall. EGD will help clarify if clinically warranted. 3. No other additional findings or changes. Electronically Signed: Pato Helm MD at 13:24 EDT , ADDENDUM: 01/09/24 1425 IMPRESSION: 1. Mild intramural edema of the appendix worrisome for early acute appendicitis. Advise clinical correlation. This is a new finding when compared to 11/22/2021. 2. Mild intramural edema of the gastric antral wall. EGD will help clarify if clinically warranted. 3. No other additional findings or changes. N.B. : The above Results were Read Back by Pato Helm MD to Jamarcus Locke MD, and understanding confirmed on 01/09/2024 13:41:55 (ET). Electronically Signed: Pato Helm MD at 13:24 EDT , Assessment & Plan Assessment/Plan (1) Acute appendicitis: QUALIFIERS: Acute appendicitis type: unspecified acute appendicitis type Qualified Code(s): K35.80 - Unspecified acute appendicitis PLAN: The patient has abdominal pain with a white count and left shift. She had a CT scan which showed edema of the appendix worrisome for early appendicitis. I reviewed the CAT scan and it also appears that she has lymphadenopathy in the area. I discussed with her that she may be having mesenteric adenitis versus acute appendicitis. Given the fact that she does have elevated white count and this was sudden onset I do recommend laparoscopic appendectomy. I discussed this with her in detail and that this may not relieve her pain if she has mesenteric adenitis. Patient is agreeable to proceed. I discussed the risks of bleeding, infection, injury other organs such as the bowel, bladder, ureter. Patient understands all the risks and is willing to proceed. . Raffy Fierro MD Pager: [facility] [address] [place] [address] [place] [address] Office:
[2024-01-09] MEDS: 0.9% Normal Saline (1000mL) 1,000 ML 15 ML IV (14:39)
--- NOTE | 2024-01-09 14:54 | PRE.ANES_ITS ---
ASA Classification* ASA Classification ASA Classification: 2 and E Assessment & Plan Anesthesia* Anesthesia Assessment Anesthesia Assessment: Discussed sedation and/or anesthesia options, risks, benefits, and alternatives with patient/parents/legal guardian/POA. Questions invited. The patient/parents/legal guardian/POA seems to understand and agrees to proceed with anesthesia plan. Reviewed the physical assessment, medical history, allergy history and patient home medications list prior to surgery/procedure/anesthetic and documented any changes. Performed airway and anesthesia risk assessments. Anesthesia Type Anesthesia Type: General (see written pre anesthesia record for full assessment) Anesthesia Focused Assessment* Temperature: 97.2 F Pulse Rate: 82 Blood Pressure: 134/92 Respiratory Rate: 19 Pulse Ox: 97 Airway Assessment Mouth opens: >3 cm Mallampati Score: II Focused Labs Anesthesia Preop lab: CBC WBC 14.7 K/mm3 (4.4-11.0) H 01/09/24 12:05 RBC 4.35 M/mm3 (4.2-5.4) 01/09/24 12:05 Hgb 12.9 g/dL (12.0-15.0) 01/09/24 12:05 Hct 37.8 % (37-47) 01/09/24 12:05 Plt Count 262 K/mm3 (150-450) 01/09/24 12:05 CHEMISTRY Potassium 3.3 mmol/L (3.5-5.1) L 01/09/24 12:05 Sodium 138 mmol/L (136-145) 01/09/24 12:05 BUN 10 mg/dL (7-18) 01/09/24 12:05 Creatinine 0.85 mg/dL (0.55-1.02) 01/09/24 12:05 Glucose 97 mg/dL (74-106) 01/09/24 12:05 POC Glucose 84 mg/dL (74-106) 11/19/21 05:59 COAG Pre-Assessment Diagnosis/Proposed Procedure Planned Operative Procedure(s): lap appy Anesthesia History 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 When Was Last Pacemaker Check QUESTION #4 FULL TEXT: You/Your Family Experience fever (hyperthermia) with Anesthesia Last Oral Intake Last Oral intake: Last Oral Intake NPO since 08:00 01/09/24 13:47 Meds taken in AM with sips of water? 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 Female HX of Motion Sickness HX of N/V After Surgery Non-Smoker Duration of Surgery greater than 60 minutes Number of Risk Factors PONV Score Height & Weight Height & Weight: Anesthesia: Height & Weight Height 5 ft 3 in 01/09/24 13:47 Weight: 68.356 kg 01/09/24 13:47 Body Mass Index (BMI) 26.6 01/09/24 13:47 Respiratory Assessment Respiratory Assessment - inner tube tuber machine operator: Respiratory Tract Infection Hx - inner tube tuber machine operator Hx Respiratory Tract Infection STOP Sleep Apnea STOP Sleep Apnea - inner tube tuber machine operator: STOP Sleep Apnea - inner tube tuber machine operator Hx Hypertension No 01/09/24 13:47 Hx Sleep Apnea No 01/09/24 13:47 CPAP BIPAP Do you snore loudly (louder No 01/09/24 13:47 than talking or can be heard Do you often feel tired/ No 01/09/24 13:47 fatigued/ sleepy during daytime? Has anyone observed you stop No 01/09/24 13:47 breathing during sleep? STOP Results Negative 01/09/24 13:47 QUESTION #5 FULL TEXT : Do you snore loudly (louder than talking or can be heard through closed doors)? 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 Specify any problems Hx of Preganancy in last 3 Months Nurse Filling Out Transfusion & Questions: Date: Time: Patient unable to answer at this time (ie. confused, unrespo /Reproduction History /Reproductive History - inner tube tuber machine operator: /Reproductive Hx- inner tube tuber machine operator Hx Now No 01/09/24 13:47 Gestational Age (in weeks): EDC: Hx Hx Para Hx Section SAB No 01/09/24 13:47 Active Medications Active Medications: Current Medications Generic Name Dose Route Start Last Admin Trade Name Freq PRN Reason Stop Dose Admin Sodium Chloride 1,000 mls @ 15 mls/hr 01/09/24 14:40 01/09/24 14:39 IV 15 mls/hr .Q48H JACE Administration PFSH Medical History Anemia Anxiety Depression depression Gestational diabetes Family history of Marfan syndrome History of depression Home Medications ?Medication ?Instructions ?Recorded ?Last Taken ?Type escitalopram oxalate 20 mg tablet 20 mg PO DAILY 01/09/24 Unknown History Allergy/AdvReac Type Severity Reaction Status Date / Time cephalexin (From Keflex) Allergy Hives Verified 01/09/24 12:22 penicillin G Allergy Hives Verified 01/09/24 12:22 Family History Mother Hypertension Father Hypertension Son Marfan syndrome Surgical History [place] teeth extracted Social History Smoking Status: Former smoker Review of Systems (Anesthesia) ROS Narrative System reviewed and no additional complaints, except as documented.
[2024-01-09] MEDS: Bupiv/Epi 0.25% 30 ML Vial (15:30)
--- NOTE | 2024-01-09 15:39 | OP.PCM_ITS ---
Report of Operation Date of Procedure: 01/09/24 Pre-Operative Diagnosis: Acute appendicitis Post-Operative Diagnosis: Acute appendicitis Surgery/Procedure Performed:: Laparoscopic appendectomy Specimen's removed: Appendix Estimated Blood Loss (mL): 5 Description of Procedure: The patient was brought into the operating room and general anesthesia was induced. The left arm was tucked and the abdomen was prepped and draped in usual sterile fashion. A small midline incision was made superior to the umbilicus and deepened to the level of the fascia. The fascia was elevated and incised. The peritoneum was also elevated and incised. A finger sweep was performed and a balloon trocar was placed into the abdomen and inflated. The abdomen was insufflated to 15 mmHg and the camera was inserted and the abdomen was inspected for any injuries upon entering the abdomen. There were none. The patient was placed in Trendelenburg position and a 5 mm ports placed in the left lower quadrant and suprapubic areas under direct visualization. Next using atraumatic bowel graspers the appendix was identified. The appendix was grasped and elevated and Enseal was used to take down the mesoappendix. A stapler was used to come across the base of the appendix. The appendix was then placed in Endo Catch bag and removed through the umbilical incision. The staple line was inspected and found to be hemostatic and intact. The 2 5 mm ports are removed under direct visualization. The balloon trocar was deflated and removed and all the air was removed from the abdomen. The umbilical incision fascia was closed with an 0 Vicryl [id number] suture. The incisions were then irrigated with saline and dried. Local anesthetic was injected into the incision sites. The skin incisions were then closed with interrupted 4-0 Monocryl suture and Steri- Strips. Bandages were applied and the patient was awoken and taken to PACU in stable condition. Patient tolerated the procedure well. Admit VTE Documentation VTE Mechan Device Prophylaxis: SCD's
--- NOTE | 2024-01-09 15:50 | APP_PTH ---
PATIENT: REBEL DAWKINS LOC: [facility] U#:[id number] AGE/SX: 28/F ROOM: RI313 RE01/09/[address]: Dr. Raffy Fierro MD : 1995 BED: 1 DIS: 01/10/2024 SPEC #: [id number] RECD: 01/11/24 07:44 STATUS: PREET BRIGHT #: [id number] SUMAN: 01/09/24 15:[address]: Raffy Fierro DEPT: SURGICAL PATHOLOGY RECD BY: Lucien Nelson ENTERED: 01/11/24 09:49 SP TYPE: APPENDIX OT DR: No Primary Care Phys Tissues: Appendix, NOS Procedures: Surgery Specimen Level III HEADER OPERATION: Laparoscopic, appendectomy PRE-OP DIAGNOSIS: Acute appendicitis TISSUE SUBMITTED: Appendix MICROSCOPIC DIAGNOSIS Appendix, appendectomy: Acute appendicitis. Acute serositis. AM/ 01/12/2024 MICROSCOPIC DESCRIPTION Slides are reviewed. GROSS DESCRIPTION Received in fixative is one container labeled with the patient's name and designated appendix. The specimen consists of appendix measuring 5.5 cm in length and up to 1.1 cm in diameter. The attached periappendiceal adipose tissue measures up to 1.5 cm in width. The serosa is covered focally with purulent exudate. No obvious perforation is identified. The lumen is filled with fecal material. No fecalith is identified. Cover Marker sections are submitted in one cassette. / SJ:mr 01/11/2024 TC:2 CPT: [id number]
--- NOTE | 2024-01-09 15:52 | PCM.POST.ANE ---
Anesthesia: Postop Eval I Current Vital Signs Temperature: 97.3 F Pulse Rate: 58 Blood Pressure: 116/85 Respiratory Rate: 16 Pulse Ox: 100 Assessment Airway patent: Yes Spontaneous unlabored respirations: Yes nausea: No Vomiting: No Anesthesia Complication: No Fluid Hydration Crystalloid volume administer (ml): 1,000 Total IV fluid infused: 1,000 Progress Note Anesthesia document: Postop Eval 1 completed: Yes
--- NOTE | 2024-01-09 15:53 | PCM.POSTANE2 ---
Anesthesia Postop Eval I Sum Postop Eval Completion status Anesthesia document: Postop Eval 1 completed: Yes Anesthesia Postop Eval I Summary Anesthesia Postop Eval I Summary: Anesthesia Postop Eval I: Assessment Summary Airway patent Yes 01/09/24 15:52 Spontaneous unlabored Yes 01/09/24 15:52 respirations Mental status nausea No 01/09/24 15:52 Vomiting No 01/09/24 15:52 Anesthesia Postop Eval I: Fluid Summary Crystalloid volume administer 1,000 01/09/24 15:52 (ml) Colloids volume administered ( ml) Blood Product volume administered (ml) Total IV fluid infused 1,000 01/09/24 15:52 Anesthesia Postop Eval I: Summary Notes Anesthesia Complication No 01/09/24 15:52 Anesthesia Complication Comment: Post-operative progress note Anesthesia: Postop Eval II Evaluation Mental status: Awake Pain Level: 0 nausea: No Vomiting: No
[2024-01-09] MEDS: 0.9% Normal Saline (1000mL) 1,000 ML 100 ML IV (17:28)
[2024-01-09] MEDS: Ketorolac 15 MG/ML Vial IV (17:39)
[2024-01-09] MEDS: Morphine 2 MG/ML Syringe IV (21:48)
[2024-01-10 01:14] VITALS: BP 112/56; PULSE 78; RESP 15; TEMP 36.9; O2SAT 100
[2024-01-10] MEDS: Acetaminophen 325 MG Tablet 650 MG PO ×3 (01:21→12:26)
[2024-01-10] MEDS: 0.9% Normal Saline (1000mL) 1,000 ML 100 ML IV (01:21)
[2024-01-10] MEDS: oxyCODONE 5 MG Tablet PO ×3 (01:22→12:25)
--- NOTE | 2024-01-10 03:48 | NURSING ---
Reviewed [employer]ORER [employer] Tessy charting.
[2024-01-10 05:22] VITALS: BP 125/71; PULSE 63; RESP 16; TEMP 36.6; O2SAT 98
[2024-01-10 07:27] LABS: Absolute Neutrophil Count 6.5 X10^3/uL (2.0-7.7); Basophil# 0.03 X10^3/uL; Basophil% 0.3 % (0-1); Eosinophil# 0.07 X10^3/uL; Eosinophils% 0.8 % (0-5); Hematocrit 31.7 % (37-47); Hemoglobin 10.7 g/dL (12.0-15.0); Mean Corp Hgb Conc 33.8 g/dL (32-36); Mean Corpuscular Hgb 29.9 pg (27.0-32.0); Mean Corpuscular Volume 88.5 fL (81-99); Mean Platelet Vol. 10.9 fl (6.2-12.0); Monocyte# 0.61 X10^3/uL; Monocyte% 6.9 % (0-10); NRBC Flagged by Analyzer 0 % (0-5); Neutrophil # 6.54 X10^3/uL (2.7-7.7); Neutrophil % 73.6 % (47-70); Platelet Count 210 K/mm3 (150-450); RBC Distribution Width CV 12.3 % (11.6-14.6); RBC Distribution Width SD 40.2 fl (35.1-43.9); Red Blood Count 3.58 M/mm3 (4.2-5.4); White Blood Count 8.9 K/mm3 (4.4-11.0)
[2024-01-10 08:00] VITALS: PULSE 51; O2SAT 98
--- NOTE | 2024-01-10 08:03 | PCM.PN.SRG ---
Subjective Subjective Patient reports she is doing well with no issues. Objective Data Objective Data Vital Signs: Vital Signs Temp Pulse Resp BP Pulse Ox O2 Del Method 97.8 F 63 16 125/71 H 98 Room Air 01/10/24 05:22 01/10/24 05:22 01/10/24 05:22 01/10/24 05:22 01/10/24 05:22 01/10/24 05:22 Oxygen Delivery Method Room Air Weight: 150 lb 11.2 oz Body Mass Index (BMI) 26.6 Intake & Output: Intake and Output for Last 24 Hours 01/08/24 01/09/24 01/10/24 23:59 23:59 23:59 Intake Total 1642.25 / 1642.25 1088.33 / 1088.33 Balance 1642.25 / 1642.25 1088.33 / 1088.33 Lab / Micro Data 01/10/24 06:35 01/09/24 12:05 Labs: Laboratory Results - last 24 hr 01/09/24 12:05: WBC 14.7 H, RBC 4.35, Hgb 12.9, Hct 37.8, MCV 86.9, MCH 29.7, MCHC 34.1, RDW Std Deviation 39.0, RDW Coeff of Genie 12.2, Plt Count 262, MPV 10.1, Immature Gran % (Auto) 0.500, Neut % (Auto) 84.5 H, Lymph % (Auto) 9.9 L, [place] % (Auto) 4.2, Eos % (Auto) 0.6, Baso % (Auto) 0.3, Absolute Neuts (auto) 12.4 H, Absolute Lymphs (auto) 1.46, Nucleated RBC % 0, Sodium 138, Potassium 3.3 L, Chloride 107, Carbon Dioxide 24.0, Anion Gap 7, BUN 10, Creatinine 0.85, Estim Creat Clear Calc 91.44, Est GFR (MDRD) Af Amer 102, Est GFR (MDRD) Non-Af 84, BUN/Creatinine Ratio 11.8, Glucose 97, Calcium 9.2, Total Bilirubin 0.50, AST 12 L, ALT 14, Alkaline Phosphatase 47, Total Protein 7.2, Albumin 3.6, Globulin 3.6, Albumin/Globulin Ratio 1.0, Lipase 31, Serum , Qual NEGATIVE 01/09/24 13:30: Urine Color Yellow, Urine Clarity Clear, Urine pH 6.5, Ur Specific [place] 1.010, Urine Protein 15 H, Urine Glucose (UA) Normal, Urine Ketones 5 H, Urine Occult Blood Negative, Urine Nitrite Negative, Urine Bilirubin Negative, Urine Urobilinogen Normal, Ur Leukocyte Esterase Negative, Urine RBC 0 SEEN, Urine WBC 0-5 SEEN, Ur Squamous Epith Cells 0-5 SEEN, Urine Bacteria 2+, Urine Mucus 0 SEEN 01/10/24 06:35: WBC 8.9, RBC 3.58 L, Hgb 10.7 L, Hct 31.7 L, MCV 88.5, MCH 29.9, MCHC 33.8, RDW Std Deviation 40.2, RDW Coeff of Genie 12.3, Plt Count 210, MPV 10.9, Immature Gran % (Auto) 0.400, Neut % (Auto) 73.6 H, Lymph % (Auto) 18.0 L, [place] % (Auto) 6.9, Eos % (Auto) 0.8, Baso % (Auto) 0.3, Absolute Neuts (auto) 6.5, Absolute Lymphs (auto) 1.60, Nucleated RBC % 0 Radiography Diagnostic Testing: Radiology Impression Abdomen/Pelvis CT 01/09/24 12:41 IMPRESSION: 1. Mild intramural edema of the appendix worrisome for early acute appendicitis. Advise clinical correlation. This is a new finding when compared to 11/22/2021. 2. Mild intramural edema of the gastric antral wall. EGD will help clarify if clinically warranted. 3. No other additional findings or changes. Electronically Signed: Pato Helm MD at 13:24 EDT , ADDENDUM: 01/09/24 1890 IMPRESSION: 1. Mild intramural edema of the appendix worrisome for early acute appendicitis. Advise clinical correlation. This is a new finding when compared to 11/22/2021. 2. Mild intramural edema of the gastric antral wall. EGD will help clarify if clinically warranted. 3. No other additional findings or changes. N.B. : The above Results were Read Back by Pato Helm MD to Jamarcus Locke MD, and understanding confirmed on 01/09/2024 13:41:55 (ET). Electronically Signed: Pato Helm MD at 13:24 EDT , Physical Exam Const oriented x3 and no apparent distress Resp normal respiratory effort and clear to auscultation bilaterally GI soft to palpation and non-tender Extremity normal to inspection Assessment & Plan Assessment/Plan (1) Acute appendicitis: QUALIFIERS: Acute appendicitis type: unspecified acute appendicitis type Qualified Code(s): K35.80 - Unspecified acute appendicitis PLAN: Patient reports doing well for laparoscopic appendectomy. She is tolerating a diet. I will discharge her home. Follow-up in 2 weeks. Raffy Fierro MD Pager: [facility] [address] [place] [address], [address] [place] [address] Office:
[2024-01-10 08:04] VITALS: BP 111/65; PULSE 51; RESP 17; TEMP 36.7; O2SAT 98
--- NOTE | 2024-01-10 08:04 | DCINST_ITS ---
Discharge Instructions Procedure Appendectomy Diet Discharge Diet: Light diet - advance as tolerated Activity Discharge Activity: May Not Drive (for 2-3 days or while taking narcotic pain medications.) May shower in (days): 1 Lifting Restrictions: 15 lbs for 2 weeks Additional Activity Instructions:: Alternate ibuprofen and Tylenol for pain control, oxycodone for breakthrough pain. Dressing / Incision Call your doctor if your incision/area has: Continuous Slow Oozing, Sudden Increased Bleeding, Increased Pain/ Swelling, Increased Redness and Foul Smelling Discharge Call your doctor if you observe: Fever of 101 or Higher Suture Line Care: Avoid Pulling/Pushing and Avoid Pinching/Bending Remove Dressing in: 2 days Cleanse incision/area with: Soap & Water Additional Dressing/Incision Instructions:: Keep dressing clean and dry. Change or remove dressing in 2 days. Leave steri strips for 1 week. May protect with a gauze bandaid. Follow Up Care Please Follow Up With: Raffy Fierro MD When: Please call to schedule 2 week follow up appointment. [phone] Test Results: Test results from this visit will be discussed in further detail at your follow- up appointment, if applicable. Discharge Plan Admission Admit Date/Time: 01/09/24 15:38 Attending Provider: Raffy Fierro Primary Care Provider: Care PhysicianAfsaneh Primary Discharge Orders/Prescriptions Prescriptions: New oxycodone 5 mg Tablet 5 - 10 mg PO Q4H PRN PRN (Reason: Pain Score 4-10) 5 Days Qty: 15 0RF Continued escitalopram oxalate 20 mg tablet 20 mg PO DAILY Referrals / Follow Up: Care PhysicianAfsaneh Primary [Primary Care Provider] - Disposition Disposition (needs filled in before D/C Order can be placed): Home, Self Care
[2024-01-10 08:05] LABS: Anion Gap 4 (5-15); BUN 5 mg/dL (7-18); BUN/Creat Ratio 6.4 RATIO (10-20); Calcium,Total 8.4 mg/dL (8.5-10.1); Chloride 110 mmol/L (98-107); Creatinine, Serum 0.78 mg/dL (0.55-1.02); EST Glomerular Filtration Rate 94 mL/min (>60); Est Glom Filt Rate - Afr Amer 113 mL/min (>60); Estimated Creatinine Clearance 99.65 ml/min; Glucose 101 mg/dL (74-106); Potassium 3.4 mmol/L (3.5-5.1); Sodium Level 139 mmol/L (136-145)
== END 2024-01-10 13:35 | disposition home or self-care (01) ==
LOC: ED 13:26 → SDC 13:59 → MS3 16:54
PROVIDERS: Admitting Provider Surgery; Emergency Provider Emergency Medicine; Visit Provider Surgery
PROC: 0DTJ4ZZ Resection of Appendix, Percutaneous Endoscopic Approach (ICD-10-PCS; CPT 44970; principal; 2024-01-09 15:30)
DX: K35.80 Unspecified acute appendicitis (principal); F41.9 Anxiety disorder, unspecified; Z87.891 Personal history of nicotine dependence; F32.A Depression, unspecified; Z79.899 Other long term (current) drug therapy
CPT/HCPCS: 44970; 00840; 36415; 74177; 80048; 80053; 81001; 83690; 84703; 85025; 88304; 96361; 96365; 96375; 96376; 99221; 99284; J7030; Q9967; A4216; C1760; G0378; J0744; J2405

== ENCOUNTER 2024-09-12 13:46 | Emergency (ER) | payer OTHER, SELFPAY ==
[2024-09-12 13:47] VITALS: BP 136/112; PULSE 116; RESP 15; TEMP 36.4; O2SAT 99; BMI 24.6
[2024-09-12 14:46] VITALS: BP 128/70; PULSE 98; RESP 18; O2SAT 98
[2024-09-12 15:05] LABS: Amphetamine Urine NEGATIVE (<1000 ng/mL); Barbiturate Urine NEGATIVE (< 200 ng/mL); Benzodiazepine Urine NEGATIVE (< 200 ng/mL); Buprenorphine Urine NEGATIVE (< 200 ng/mL); Cocaine Urine NEGATIVE (< 300 ng/mL); Fentanyl, Urine NEGATIVE; Methadone Urine NEGATIVE (< 300 ng/mL); Opiates Urine NEGATIVE (< 300 ng/mL); Oxycodone, Urine NEGATIVE (< 100 ng/mL); PCP Urine NEGATIVE (< 25 ng/mL); THC Urine PRESUMPTIVE POSITIVE (< 50 ng/mL)
--- NOTE | 2024-09-12 15:43 | EX.ED.DYSGE1 ---
HPI History of Present Illness Chief Complaint: Suicidal PFSH PFSH Medical History Anemia Anxiety Depression depression Gestational diabetes Family history of Marfan syndrome History of depression Home Medications ?Medication ?Instructions ?Recorded ?Last Taken ?Type bupropion HCl 150 mg tablet,12 hr 150 mg PO BID 09/12/24 Unknown History sustained-release Allergy/AdvReac Type Severity Reaction Status Date / Time cephalexin (From Keflex) Allergy Hives Verified 09/12/24 13:47 penicillin G Allergy Hives Verified 09/12/24 13:47 Family History Mother Hypertension Father Hypertension Son Marfan syndrome Surgical History S/P appendectomy [place] teeth extracted Social History Smoking Status: Former smoker EXAM Physical Exam Const Vital Signs: 09/12/24 13:47 09/12/24 14:46 09/12/24 16:58 Temperature 97.5 F L Temperature Source Temporal Pulse Rate 116 H 98 87 Respiratory Rate 15 18 18 Blood Pressure 136/112 H 128/70 H 132/74 H Blood Pressure Mean 120 89 93 Pulse Ox 99 98 97 Oxygen Delivery Method Room Air Room Air Room Air MDM [facility] MDM Narrative Medical decision making narrative: HISTORY OF PRESENT ILLNESS: Chief complaint: Suicidal ideation with plan 29-year-old female history of depression, anxiety presents with suicidal ideation with plan. States she would like to kill herself with a gun. She has access to firearms per her. States no homicide ideation or visual hallucinations. No physical complaints REVIEW OF SYSTEMS: Pertinent positives: Suicidal ideation, auditory hallucinations Pertinent negatives: Homicidal ideation PHYSICAL EXAM: Nursing triage notes reviewed, Vital signs reviewed Constitutional: please see mdm HENT: MMM Eyes: Pupils equal round and reactive to light, Extraocular muscles intact Neck: No stridor, no JVD, full neck ROM Lungs: Clear to auscultation, No wheezing or rales. No increased work of breathing, no conversational dyspnea, no accessory muscle use, no nasal flaring. No respiratory distress noted Heart: Regular rate and rhythm, No murmurs, No rubs and No gallops, 2+ distal pulses (radial, femoral, posterior tibial) in all extremities Abdomen: Soft, there is no tenderness, rigidity, rebound or guarding, no obvious peritoneal signs, no palpable pulsatile abdominal masses, no auscultated abdominal bruit : No CVAT Extremities: No edema Neuro: No new focal neurological deficits, cranial nerves II through XII intact, 5/5 strength in all present extremities. Intact sensation to light touch in all present extremities, 2+ reflexes bilateral patella tendons. Skin: No rash or lesions noted Psych: Depressed affect, goal-directed thought, does not appear to be responding to internal stimuli MEDICAL DECISION MAKING: Chief Complaint: please see [facility] External records reviewed: Reviewed prior inpatient notes: No recent psychiatric inpatient notes noted Factors affecting care: as per [facility] Social determinants of health: history of mental health disorder History obtained from others: none Consults: Behavioral health psychiatry MDM Narrative: Patient was initially tachycardic otherwise afebrile. Patient was seen in [facility] secondary to poor Department of conditions on 09/12/2024 including high volume and high acuity. Medical clearance labs were obtained given concern for suicidal ideation with plan ALL IMAGES (IF OBTAINED) HAVE BEEN PERSONALLY REVIEWED AND INTERPRETED BY MYSELF. Urine tox screen positive for cannabinoids CBC without leukocytosis, severe anemia, no thrombocytopenia. BMP without evidence of significant electrolyte abnormalities, no anion gap, no acute kidney injury. Urine negative Serum alcohol negative The patient was medically cleared. She is awaiting behavioral health evaluation and likely placement in inpatient psychiatric facility given report of suicidal ideation with definitive plan. [facility] able to get the patient placed. She is awaiting transfer. [place] slip signed. Transfer form signed. The patient and/or family, caregivers express understanding. The patient and/or family, caregivers agrees with the plan. Shared decision making: I will have a discussion with the patient and or visitors regarding risk/benefits of further testing or admission. They will be made aware of of the risk/benefits inherent in this decision they will be given the opportunity to voice understanding. Total critical care time today provided was at least 0 minutes. This excludes separately billable procedures. Critical care time (if documented) is secondary to the patient having high probability of clinically significant/life threatening deterioration in the patient's condition which required my urgent intervention. Impression: 1. Suicidal ideation 2. History of depression Dispo: Admit to inpatient psychiatric facility This note was generated with [employer] dictation software. It may contain incorrect words, spelling, and punctuation that were not noted in review of the chart prior to signing. Lab Data Labs: Laboratory Results - last 24 hr 09/12/24 09/12/24 14:12 17:11 WBC 8.6 RBC 4.22 Hgb 12.8 Hct 37.2 MCV 88.2 MCH 30.3 MCHC 34.4 RDW Std Deviation 39.9 RDW Coeff of Genie 12.4 Plt Count 274 MPV 10.4 Immature Gran % (Auto) 0.200 Neut % (Auto) 61.7 Lymph % (Auto) 29.8 [place] % (Auto) 6.0 Eos % (Auto) 1.7 Baso % (Auto) 0.6 Absolute Neuts (auto) 5.3 Absolute Lymphs (auto) 2.57 Nucleated RBC % 0 Sodium 137 Potassium 4.0 Chloride 105 Carbon Dioxide 20.3 L Anion Gap 12 BUN 8 Creatinine 0.86 Estim Creat Clear Calc 86.33 Est GFR (MDRD) Non-Af 94 BUN/Creatinine Ratio 9.1 L Glucose 85 Calcium 9.5 Serum , Qual NEGATIVE Urine Opiates Screen NEGATIVE U Buprenorphine Qual NEGATIVE Ur Oxycodone Screen NEGATIVE Urine Methadone Screen NEGATIVE Urine Fentanyl Screen NEGATIVE Ur Barbiturates Screen NEGATIVE Ur Phencyclidine Scrn NEGATIVE Ur Amphetamines Screen NEGATIVE U Benzodiazepines Scrn NEGATIVE Urine Cocaine Screen NEGATIVE U Cannabinoids Screen PRESUMPTIVE POSITIVE Ethyl Alcohol < 10.1 Discharge Plan Triage Chief Complaint: Suicidal ED Provider: Rony Owens Dx/Rx/DC Orders Prescriptions: No Action bupropion HCl 150 mg tablet sustained-release 12 hr 150 mg PO BID Primary Care Provider: Gisselle Duke,Out of Referrals: Gisselle Duke,Out of [Primary Care Provider] - Print Language: Lao
[2024-09-12 16:58] VITALS: BP 132/74; PULSE 87; RESP 18; O2SAT 97
[2024-09-12 17:42] LABS: Absolute Lymphocyte Count 2.57 X10^3/uL (0.83-4.51); Absolute Neutrophil Count 5.3 X10^3/uL (2.0-7.7); Basophil# 0.05 X10^3/uL; Basophil% 0.6 % (0-1); Eosinophil# 0.15 X10^3/uL; Eosinophils% 1.7 % (0-5); Hematocrit 37.2 % (37-47); Hemoglobin 12.8 g/dL (12.0-15.0); Lymphocyte # 2.57 X10^3/ul (0.83-4.51); Lymphocyte % 29.8 % (19-41); Mean Corp Hgb Conc 34.4 g/dL (32-36); Mean Corpuscular Hgb 30.3 pg (27.0-32.0); Mean Corpuscular Volume 88.2 fL (81-99); Mean Platelet Vol. 10.4 fl (6.2-12.0); Monocyte# 0.52 X10^3/uL; NRBC Flagged by Analyzer 0 % (0-5); Neutrophil % 61.7 % (47-70); Platelet Count 274 K/mm3 (150-450); RBC Distribution Width CV 12.4 % (11.6-14.6); RBC Distribution Width SD 39.9 fl (35.1-43.9); Red Blood Count 4.22 M/mm3 (4.2-5.4); White Blood Count 8.6 K/mm3 (4.4-11.0)
--- NOTE | 2024-09-12 18:00 | CM.ED ---
Social Work Psychiatric Assessment Reason for consult: suicidal Informant(s): patient, medical records Chief Complaint: Patient presented to [facility] ED today due to increased suicidal thoughts. Per triage notes, patient reported increased depression and SI after starting Wellbutrin on Thursday09/09/24. Patient reportedly told the triage nurse that patient is thinking of killing self with a firearm and patient reportedly has access to firearms. During assessment with this SW, patient stated having an increase in SI, depression, and anxiety. Patient reported having to force self to eat and shower or I won't, and patient endorsed not sleeping well. Patient endorsed auditory hallucinations, specifically hearing voices that feel like they're pushing me...like I'm crazy or something. Patient endorsed feeling hopeless and helpless. Patient denied family history of mental health or suicide, though patient reported not knowing about family history due to patient's parents not believing in mental health as patient was growing up. Patient reported currently being at an 8 or a 9 on the depression scale (out of 10). Due to high volume in the [facility] ED today, patient had a hallway bed. However, for privacy reasons, this assessment was completed in ED SW office with all other patient information hidden from patient's view. Marital/Social History/Sexual Orientation/Gender Identity: patient is a 29 year old female who is and has 2 children, Ever (7 years old) and Roman (2 years old). Living Situation: patient lives with patient's and 2 children. Support/Resources: patient denies having any supports outside of patient's . However, patient's reportedly has fibromyalgia and has been disabled as a result. 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 Mental Health Treatment/History: patient reports not having any official diagnoses, not having a psychiatrist, and not having a counselor at this time. Patient reports only taking Wellbutrin prescribed by patient's PCP on this past 09/09/24. Patient reports starting [facility] for counseling on Thursday09/17/24. Triggers/Stressors to mental health: patient stated, same shit, different day when asked this question. 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 Patient stated being alone as a trigger and patient states spending much time alone throughout the week. Patient states having people around patient at work, but often desiring to just go home due to anxiety being high. Coping Skills: patient denied having any healthy coping skills, specifically stating only crying until patient stops; patient reports this has increased as well. History of Abuse (physical/sexual/verbal/emotional): patient denies any historical or current abuse. Substance Abuse Current/Historical: patient denies any historical or current substance use. Risk to Self/Others: ? Suicidal (thought/plan/intent/attempt): see C-SSRS for details. ? Access to Lethal Means: patient stated to the triage nurse that patient has access to firearms; patient told this SW that patient's moved the firearms to an unknown location. Patient reports having access to a kitchen set of knives and reports patient's takes medication. Patient stated that none of patient's 's medication could do that much damage. ? Homicidal (thought/plan/intent/attempt): patient denies current or historical homicidal thoughts, plans, intent, or attempts. ? History of Violence (self/others/objects): patient states becoming really angry and squeezing self in order to not hurt other people. Patient denies history of violence toward others or objects. Mental Status Exam: ??? Orientation: patient oriented to time, place, and person. ??? Memory: fair Appearance/General Behavior: slumped, directable Mood/Affect: depressed, anxious Communication Pattern: responds to questions (limited/incoherent at times), avoided eye contact Thought Process: appropriate, but admitted to auditory hallucinations General Intellectual Functioning: average Judgment: fair Insight: fair [place] SS[place] SUICIDAL IDEATION Ask questions 1 and 2. If both are negative, proceed to ?Suicidal Behavior? section. If the answer question 2 is yes, ask questions 3, 4, 5.? If the answer to question 1 and/or 2 is ?yes?, complete ?Intensity of Ideation? section below. 1. Wish to be ? Subject endorses thoughts about a wish to be or not alive anymore or wish to fall asleep and not wake up. Have you wished you were or wished you could go to sleep and not wake up? Lifetime: Time He/She [place] Most Suicidal: ?yes Past 1 month: yes Please Describe if yes: ?patient reported general thoughts of wishing patient was . 2. Non-Specific Active Suicidal Thoughts General, non-specific thoughts of wanting to end one?s life/commit suicide (e.g., ?I?ve thought about killing myself?) without thoughts of ways to kills oneself/associated methods, intent, or plan during the assessment period.? Have you actually had any thoughts of killing yourself? Lifetime: Time He/She [place] Most Suicidal: yes ? Past 1 month: yes Please Describe if yes: patient reported general thoughts of wanting to kill self. 3. Active Suicidal Ideation with Any Methods (Not Plan) without Intent to Act Subject endorses thoughts of suicide and has thought of at least one method during the assessment period.? This is different than a specific plan with time, place, or method details worked out (e.g., thought of method to kills self but not a specific plan).? Includes person who would say ?I thought about thanking an overdose, but I never made a specific plan as to when, where or how. I would actually do it, and I would never go through with it.? Have you been thinking about how you might do this? Lifetime: Time He/She [place] Most Suicidal: ?yes Past 1 month:? yes Please Describe if yes: patient reported in patient's lifetime and over the last month having thoughts of jumping off a bridge, driving into oncoming traffic, and shooting self with a firearm. 4. Active Suicidal Ideation with Some Intent to Act, without Specific Plan Active suicidal thoughts of kills oneself fand subject reports having some intent to act on such thoughts, as opposed to ?I have the thoughts but I definitely will not do anything about them.? Have you had these thoughts and had some intention of acting on them? Lifetime: Time He/She [place] Most Suicidal: no Past 1 month: yes Please Describe if yes: patient stated having some intention of acting on the thoughts, especially when thinking of how nice it would be. 5. Active Suicidal Ideation with Specific Plan and Intent Thoughts of kills oneself with details of plan fully or partially worked out and subject has some intent to care it out. Have you started to work out or worked out the details of how to kill yourself? Do you intend to carry out this plan? Lifetime: Time He/She [place] Most Suicidal: no Past 1 month: ?no Please Describe if yes: N/A INTENSITY OF IDEATION The following feature should be rated with respect to the most sever type of ideation (i.e., 1-5 from above, with 1 being the least severe and 5 being the most severe). Ask about time he/she/they were feeling the most suicidal.? Lifetime - Most Severe Ideation: Type # (1-5): Description: Recent - Most Severe Ideation: Type # (1-5): Description: Frequency How many times have you had these thoughts? Lifetime: (1) Less than once a week??? (2) Once a week?? (3)? 2-5 times in week??? (4) Daily or almost daily??? (5) Many times each day Recent, Past 1 month:? (1) Less than once a week??? (2) Once a week?? (3)? 2-5 times in week??? (4) Daily or almost daily??? (5) Many times each day Duration When you have the thoughts, how long do they last? Lifetime: (1) Fleeting - few seconds or minutes? (2) Less than 1 hour/some of the time? (3) 1-4 hours/a lot of time? 4) 4-8 hours/most of day? (5) More than 8 hours/persistent or continuous Recent, Past 1 month:? (1) Fleeting - few seconds or minutes? (2) Less than 1 hour/some of the time? (3) 1-4 hours/a lot of time? 4) 4-8 hours/most of day? (5) More than 8 hours/persistent or continuous Controllability Could/can you stop thinking about killing yourself or wanting to if you want to? Lifetime:? (1) Easily able to control thoughts?? (2) Can control thoughts with little difficulty??? (3) Can control thoughts with some difficulty??? 4) Can control thoughts with a lot of difficulty? (5) Unable to control thoughts?? (0) Does not attempt to control thoughts Recent, Past 1 month: (1) Easily able to control thoughts?? (2) Can control thoughts with little difficulty??? (3) Can control thoughts with some difficulty??? 4) Can control thoughts with a lot of difficulty? (5) Unable to control thoughts?? (0) Does not attempt to control thoughts Deterrents Are there things - anyone or anything (e.g., family, advent, pain of ) - that stopped you from wanting to or acting on thoughts of committing suicide? Lifetime:? (1) Deterrents definitely stopped you from attempting suicide? (2) Deterrents probably stopped you?? (3) Uncertain that deterrents stopped you? (4) Deterrents most likely did not stop you? (5) Deterrents definitely did not stop you?? 0) Does not apply??? Recent:??? (1) Deterrents definitely stopped you from attempting suicide? (2) Deterrents probably stopped you?? (3) Uncertain that deterrents stopped you? (4) Deterrents most likely did not stop you? (5) Deterrents definitely did not stop you?? 0) Does not apply??? Reasons for Ideation What sort of reasons did you have for thinking about wanting to or killing yourself? Was it to end the pain or stop the way you were feeling (in other words you couldn?t go on living with this pain or how you were feeling) or was it to get attention, revenge or a reaction from others? Or both? Lifetime: (1) Completely to get attention, revenge or a reaction from?? (2) Mostly to get attention, revenge or a reaction from others? (3) Equally to get attention, revenge or a reaction from others? and to end/stop the pain?? ( 4) Mostly to end or stop the pain (you couldn?t go on living with the pain or how you were feeling)??? (5) Completely to end or stop the pain (you couldn?t go on living with the pain or? how you were feeling)??? (0)? Does not apply? Recent: (1) Completely to get attention, revenge or a reaction from?? (2) Mostly to get attention, revenge or a reaction from others? (3) Equally to get attention, revenge or a reaction from others? and to end/stop the pain??? (4) Mostly to end or stop the pain (you couldn?t go on living with the pain or how you were feeling)?? (5) Completely to end or stop the pain (you couldn?t go on living with the pain or? how you were feeling)?? (0)? Does not apply? SUICIDAL BEHAVIOR Actual Attempt: A potentially self-injurious act committed with at least some wish to , as a result of act.? Behavior was in part thought of as method to kill oneself.? Intent does not have to be 100%.? If there is any intent/desire to associated with the act, then it can be considered an actual suicide attempt.? There does not have to be any injury of harm, just the potential for injury or harm.? If person pulls trigger while gun is in mouth, but gun is broken so no injury results, this is considered an attempt.? Inferring intent:? Even if an individual denies intent/wish to , it may be inferred clinically from the behavior or circumstances.? For example, a highly lethal act that is clearly not an accident so no other intent but suicide can be inferred (e.g. gunshot to head, jumping from window of a high floor/story).? Also, if someone denies intent to , but they thought that what they did could be lethal, intent may be inferred.? Have you made a suicide attempt? Have you done anything to harm yourself? Have you done anything dangerous where you could have ? What did you do? Did you as a way to end your life? Did you want to (even a little) when you ? Were you trying to end your life when you ? Or did you think it was possible you could have from ? Or did you do it purely for other reasons/without ANY intention of killing yourself like to relieve stress, feel better, get sympathy, or get something else to happen)? (Self -Injurious Behavior without suicidal intent) Lifetime: no Past 3 months: no If yes, describe: N/A Total # of Attempts in His/Her Lifetime: N/A Total # of attempts in Past 3 months: N/A Has person engaged in Non-Suicidal Self-Injurious Behavior? Lifetime: no Past 3 months: no Interrupted Attempt: When the person is interrupted (by an outside circumstance) from starting the potentially self-injurious act (if not for that, actual attempt would have occurred).? Overdose: Person has pills in hand but is stopped from ingesting. Once they ingest any pills, this becomes an attempt rather than an interrupted attempt. Shooting: Person has gun pointed toward self, gun is taken away by someone else, or is somehow prevented from pulling trigger. Once they pull the trigger, even if the gun fails to fire, it is an attempt. Jumping: Person is poised to jump, is grabbed and taken down from ledge.? Hanging: Person has noose around neck but has not yet started to hang self -is stopped from doing so.? Has there been a time when you started to do something to end your life but someone or something stopped you before you did anything? Lifetime: no Past 3 months: no If yes, describe: ?N/A Total # of interrupted attempts in His/Her Lifetime: N/A Total # of interrupted attempts in Past 3 months: N/A Aborted or Self-Interrupted Attempt:? When person begins to take steps toward making a suicide attempt, but stops themselves before they have actually engaged in any self-destructive behavior. Examples are like interrupted attempts, except that the individual stops him/herself, instead of being stopped by something else. Has there been a time when you started to do something to try to end your life, but you stopped yourself before you did anything? Lifetime: no Past 3 months: no If yes, describe: N/A Total # of aborted or self-interrupted attempts in His/Her Lifetime: N/A Total # of aborted or self-interrupted attempts in Past 3 months: N/A Preparatory Acts or Behavior:? Acts or preparation towards imminently making a suicide attempt. This can include anything beyond a verbalization or thought, such as assembling a specific method (e.g., buying pills, purchasing a gun) or preparing for one?s by suicide (e.g., giving things away, writing a suicide note). Have you taken any steps towards making a suicide attempt or preparing to kill yourself (such as collecting pills, getting a gun, giving valuables away or writing a suicide note)? Lifetime: no Past 3 months: no If yes, describe: N/A Total # of preparatory acts in His/Her Lifetime: N/A Total # of preparatory acts in Past 3 months: N/A Lethality/Medical Damage:??? 0. No physical damage or very minor physical damage (e.g., surface scratches). 1. Minor physical damage (e.g., lethargic speech; first-degree wallace; mild bleeding; sprains). 2. Moderate physical damage; medical attention needed (e.g., conscious but sleepy, somewhat responsive; second-degree wallace; bleeding of major vessel). 3. Moderately severe physical damage; medical hospitalization and likely intensive care required (e.g., comatose with reflexes intact; third-degree wallace less than 20% of body; extensive blood loss but can recover; major fractures). 4. Severe physical damage; medical hospitalization with intensive care required (e.g., comatose without reflexes; third-degree wallace over 20% of body; extensive blood loss with unstable vital signs; major damage to a vital area). 5. Most Recent attempt Date: Code: Most Lethal Attempt Date: Code: Initial/First Attempt Date: Code: Potential Lethality: Only Answer if Actual Lethality=0 Likely lethality of actual attempt if no medical damage (the following examples, while having no actual medical damage, had potential for very serious lethality: put gun in mouth and pulled the trigger but gun fails to fire so no medical damage; laying on train tracks with oncoming train but pulled away before run over). 0 = Behavior not likely to result in injury 1 = Behavior likely to result in injury but not likely to cause 2 = Behavior likely to result in despite available medical care Most Recent Attempt Code: Most Lethal Attempt Code: Initial/First Attempt Code: Assessment Summary: due to patient's highly lethal suicidal intent, increasing SI and depression, current feeling of isolation, lack of healthy supports and lack of current treatment, endorsement of hopelessness and helplessness, lack of self-care including appetite and sleep, and auditory hallucinations, patient would benefit from inpatient psychiatric placement in order to stabilize and evaluate medications. Spoke with doctor who agrees. Plan: inpatient mental health treatment Bre Manuel, SHIFT SUPERINTENDENT, DEMOLITIONIST
[2024-09-12 18:12] LABS: Internal QC Validated? YES +Cl - CLEAR BKGD; Record Kit Lot#, Serum Preg. 929381
[2024-09-12 18:13] LABS: Anion Gap 12 (5-15); BUN 8 mg/dL (4-19); BUN/Creat Ratio 9.1 RATIO (10-20); Calcium,Total 9.5 mg/dL (7.6-11.0); Carbon Dioxide 20.3 mmol/L (21.0-32.0); Chloride 105 mmol/L (98-108); Creatinine, Serum 0.86 mg/dL (0.70-1.20); EST Glomerular Filtration Rate 94 (>60); Estimated Creatinine Clearance 86.33 ml/min (50-250); Glucose 85 mg/dL (70-99); Pregnancy, Serum, hCG Quali. NEGATIVE Negative; Sodium Level 137 mmol/L (133-145)
[2024-09-12 18:32] LABS: Alcohol, Blood (Medical)-Serum < 10.1 mg/dL (<=10.0)
--- NOTE | 2024-09-12 20:00 | CM.ED ---
Social work 1844: Called [facility] (ph: [phone]) and beds available. Referral faxed (f: ). 1944: Hillary with [facility] called back and accepted patient. Dr. Tameka Chávez N2N: [phone], option 2 for [place] [facility] needed updated pink slip and this was faxed by this SW. Hillary to call back with transportation as [facility] may be able to provide. Updated nursing and doctor, as well as patient. Patient observed being tearful and stating desire to just go home. [facility] staff/current sitter Darletta providing emotional support as necessary. Patient's at patient's side. Plan: [facility], pending transport. Bre Jackson, SITE INTERPRETER, AMPOULE WASHING MACHINE OPERATOR
--- NOTE | 2024-09-12 20:48 | CM.ED ---
Social work 2009: patient stated to this SW feeling scared of going to [facility] due to the reviews not looking good. Patient's stated having no questions and simply trying not to get angry. SW provided active listening and supportive presence as needed. SW answered questions as accurately as possible. Patient requested nicotine patch; SW passed this request on to nursing. Patient denied needing anything for patient's current level of agitation. 2044: SW called [facility] (ph: [phone]) due to not having a response yet regarding transportation. [facility] confirmed being able to pickup patient with an ETA of [id number]. Nursing and patient updated. Plan: [facility] with transport ETA [id number]. Bre Jackson, POLICY CHECKER, LEAD CONSULTANT
--- NOTE | 2024-09-12 22:29 | ED.RN ---
Report called to [facility]
[2024-09-12 22:49] VITALS: BP 120/72; PULSE 75; RESP 15; TEMP 36.4; O2SAT 100
== END 2024-09-12 23:54 | disposition short-term general hospital (02) ==
PROVIDERS: Emergency Provider Emergency Medicine; Visit Provider Emergency Medicine
DX: R45.851 Suicidal ideations (principal); F41.9 Anxiety disorder, unspecified; F32.A Depression, unspecified; Z79.899 Other long term (current) drug therapy; Z87.891 Personal history of nicotine dependence
CPT/HCPCS: 80048; 80307; 82077; 84703; 85025; 99284